=== PATIENT | male | born 1955 | race Caucasian/White ===

== ENCOUNTER 2024-02-04 18:42 | Outpatient (REF) | payer MEDICARE, SELFPAY ==
[2024-02-04 19:22] LABS: ALT 37 U/L (16-63); AST 24 U/L (15-37); Albumin 4.2 g/dL (3.4-5.0); Alkaline Phosphatase 100 U/L (46-116); Anion Gap 14.1 mmol/L (3-11); BUN 18 mg/dL (7-18); Bilirubin, Total 0.3 mg/dL (0.2-1.0); CO2 23.9 mmol/L (21.0-32.0); CREATININE 0.8 mg/dL (0.70-1.30); Calcium 9.4 mg/dL (8.5-10.1); Chloride 104 mmol/L (98-107); Glucose 98 mg/dL (74-106); Potassium 4.1 mmol/L (3.5-5.1); Sodium 142 mmol/L (136-145); Total Protein 8.6 g/dL (6.4-8.2)
[2024-02-04 20:05] LABS: Hemoglobin A1C 5.9 % (<5.7)
[2024-02-04 20:41] LABS: Cholesterol 257 mg/dL (<200); HDL Cholesterol 49 mg/dL (40-60); Triglyceride 405 mg/dL (<150)
[2024-02-04 22:46] LABS: LDL CHOLESTEROL 153 mg/dL (<100)
[2024-02-05 18:13] LABS: PSA, Screening 1.4 ng/mL (<=4.5)
== END 2024-02-04 18:43 | disposition home or self-care (01) ==
LOC: NCHCN 18:42
PROVIDERS: PCP Family Medicine; Visit Provider Nurse Practitioner Family
DX: E78.5 Hyperlipidemia, unspecified (principal); Z00.00 Encounter for general adult medical examination without abnormal findings
CPT/HCPCS: 80053; 80061; 82306; 83721; 84153; 83036

== ENCOUNTER → 2024-03-17 14:45 | Outpatient (CLI) | payer MEDICARE, SELFPAY ==
--- NOTE | 2024-03-17 10:13 | DI.RAD_ITS ---
Exam(s) XR CHEST 2V PA LATERAL EXAM: XR CHEST 2V PA LATERAL CLINICAL HISTORY: PERSISTENT COUGH, R05.3. TECHNIQUE: 2D digital imaging was performed. COMPARISON: No exams were available for comparison FINDINGS: 2 views: Heart size is normal. The mediastinum is not widened. Lungs are clear. No infiltrates nor pleural effusions. IMPRESSION: No acute pulmonary findings. DATA REPOSITORY: RADIATION DOSE DELIVERED:
== END ==
PROVIDERS: PCP Family Medicine; Visit Provider Physician Assistant Medical
DX: R05.3 Chronic cough (principal)
CPT/HCPCS: 71046

== ENCOUNTER 2024-03-17 16:32 | Outpatient (REF) | payer MEDICARE, SELFPAY ==
--- OUTSIDE RECORDS SUMMARY | 2024-03-30 16:34 | XMS_ITS | Continuity of Care Document ---
Author Name Unknown Organization [facility] Ambulatory Clinics Address [address] [place] [address] Care Team Providers Care Hide Trimmer Name Role Phone MONTRELL CORDOBA Primary Care Physic suellen Encounter [facility] FIN NBR [id number] Date(s): 02/05/24 - 02/05/24 [facility] Ambulatory Clin[facility] [address] [place], [place] [address] Allergies, Adverse Reactions, Alerts Substance Reaction Severity Status Bee Stings Severe Active sulfa drugs Mild Active Medications multivitamin adult, oral tablet 1 tab, Oral, Daily, # 30 tab, 0 Refill(s) Start Date: 03/16/23 Status: Ordered PriLOSEC OTC 20 mg oral delayed release tablet 20 mg = 1 tab, Oral, Daily, # 30 tab, 0 Refill(s) Start Date: 03/16/23 Status: Ordered Social History Social History Type Response Tobacco Never tobacco user T obacco Use:. Sex Patient Care team information Care Team Personnel Name: MONTRELL CORDOBA Position: No Access Member Role: Primary Care Physician Address: Address: [facility] [address] [place] [address]- [place] Care Team Related Persons Name: JOAQUIN WILKS
--- OUTSIDE RECORDS SUMMARY | 2024-03-30 16:34 | XMS_ITS | Continuity of Care Document ---
Author Name Unknown Organization [facility] Address [address] [place] [address] Encounter [facility] FIN NBR [id number] Date(s): 03/17/23 - 03/17/23 [facility] [address] [place], [place] [address] Encounter Diagnosis Abscess(Discharge Diagnosis) - 03/17/23 Discharge Disposition: Home or Self Care Attending Physician: Bassam Rodriguez MD Admitting Physician: Bassam Rodriguez MD Allergies, Adverse Reactions, Alerts Substance Reaction Severity Status Bee Stings Severe Active sulfa drugs Mild Active Functional Status 03/17/23 Family Member Travel History No recent t ravel Recent Travel History No recent travel Other exposure to Infectious Disease Non e Medications multivitamin adult, oral tablet 1 tab, Oral, Daily, # 30 tab, 0 Refill(s) Start Date: 03/16/23 Status: Ordered PriLOSEC OTC 20 mg oral delayed release tablet 20 mg = 1 tab, Oral, Daily, # 30 tab, 0 Refill(s) Start Date: 03/16/23 Status: Ordered Mental Status 03/17/23 Eye Opening Response Jefferson Spontaneous ly Best Verbal Response Elli Oriented Best Motor Response Jefferson Obeys comman ds Jefferson Coma Score 15 Vital Signs Most recent to oldest [Reference Range]: 1 Temperature Temporal Artery [36-38 Deg C ] 36.4 Deg C (03/17/23 4:00 PM) Peripheral Pulse Rate [60-100 bpm] 74 bp m (03/17/23 4:00 PM) Respiratory Rate [12-24 br/min] 18 br/mi n (03/17/23 4:00 PM) Blood Pressure [90-140/60-90 mmHg] 137/9 8mmHg (03/17/23 4:00 PM) Weight Dosing 98.00 kg (03/17/23 4:13 PM) Weight Estimated 98.00 kg (03/17/23 4:00 PM) Height/Length Dosing 175.000 cm (03/17/23 4:13 PM) Height/Length Estimated 175.000 cm (03/17/23 4:00 PM) Social History Social History Type Response Tobacco Never tobacco user T obacco Use:. Sex Hospital Discharge Instructions Patient Education 03/17/2023 15:31:16 Skin Abscess Skin Abscess A skin abscess is an infected area on or under your skin that contains a collection of pus and other material. An abscess may also be called a furuncle, carbuncle, or boil. An abscess can occur in oron almost any part of your body. Some abscesses break open (rupture) on their own. Most continue to get worse unless they are treated. The infection can spread deeper into the body and eventually into your blood, which can make you feel ill. Treatment usually involves draining the abscess. What are the causes? An abscess occurs when germs, like bacteria, pass through your skin and cause an infection. This may be caused by: ??? A scrape or cut on your skin. ??? A puncture wound through your skin, including a needle injection or insect bite. ??? Blocked oil or sweat glands. ??? Blocked and infected hair follicles. ??? A cyst that forms beneath your skin (sebaceous cyst) and becomes infected. What increases the risk? This condition is more likely to develop in people who: ??? Have a weak body defense system (immune system). ??? Have diabetes. ??? Have dry and irritated skin. ??? Get frequent injections or use illegal IV drugs. ??? Have a foreign body in a wound, such as a splinter. ??? Have problems with their lymph system or veins. What are the signs or symptoms? Symptoms of this condition include: ??? A painful, firm bump under the skin. ??? A bump with pus at the top. This may break through the skin and drain. Other symptoms include: ??? Redness surrounding the abscess site. ??? Warmth. ??? Swelling of the lymph nodes (glands) near the abscess. ??? Tenderness. ??? A sore on the skin. How is this diagnosed? This condition may be diagnosed based on: ??? A physical exam. ??? Your medical history. ??? A sample of pus. This may be used to find out what is causing the infection. ??? Blood tests. ??? Imaging tests, such as an ultrasound, CT scan, or MRI. How is this treated? A small abscess that drains on its own may not need treatment. Treatment for larger abscesses may include: ??? Moist heat or heat pack applied to the area several times a day. ??? A procedure to drain the abscess (incision and drainage). ??? Antibiotic medicines. For a severe abscess, you may first get antibiotics through an IV and then change to antibiotics by mouth. Follow these instructions at home: Medicines ??? Take [id number]-[id number] and prescription medicines only as told by your health care provider. ??? If you were prescribed an antibiotic medicine, take it as told by your health care provider. Donot stop taking the antibiotic even if you start to feel better. Abscess care ??? If you have an abscess that has not drained, apply heat to the affected area. Use the heat source that your health care provider recommends, such as a moist heat pack or a heating pad. ??? Place a towel between your skin and the heat source. ??? Leave the heat on for 20???30 minutes. ??? Remove the heat if your skin turns bright red. This is especially important if you are unable to feel pain, heat, or cold. You may have a greater risk of getting burned. ??? Follow instructions from your health care provider about how to take care of your abscess. Makesure you: ??? Cover the abscess with a bandage (dressing). ??? Change your dressing or gauze as told by your health care provider. ??? Wash your hands with soap and water before you change the dressing or gauze. If soap and water are not available, use hand beauty consultant. ??? Check your abscess every day for signs of a worsening infection. Check for: ??? More redness, swelling, or pain. ??? More fluid or blood. ??? Warmth. ??? More pus or a bad smell. General instructions ??? To avoid spreading the infection: ??? Do not share personal care items, towels, or hot tubs with others. ??? Avoid making skin contact with other people. ??? Keep all follow-up visits as told by your health care provider. This is important. Contact a health care provider if you have: ??? More redness, swelling, or pain around your abscess. ??? More fluid or blood coming from your abscess. ??? Warm skin around your abscess. ??? More pus or a bad smell coming from your abscess. ??? A fever. ??? Muscle aches. ??? Chills or a general ill feeling. Get help right away if you: ??? Have severe pain. ??? See red streaks on your skin spreading away from the abscess. Summary ??? A skin abscess is an infected area on or under your skin that contains a collection of pus and other material. ??? A small abscess that drains on its own may not need treatment. ??? Treatment for larger abscesses may include having a procedure to drain the abscess and taking an antibiotic. This information is not intended to replace advice given to you by your health care provider. Make sure you discuss any questions you have with your health care provider. Document Revised: 01/19/2020 Document Reviewed: 11/11/2018 [employer] Patient Education ?? 2021 [employer]. Follow Up Care 03/17/2023 16:00:05 With:Follow-up with your primary care Address: When:1 week Comments:Follow-up with your primary care as needed, they will be able to reevaluate if necessaryReturn to ED if concerns Physician Emergency department Note * CLEOPATRA Lin: PERFORM Event Display: ED Note Physician Authored Date: [id number] TEREZA WILKS :1955 Age:67 years Sex:Male Visit Date:03/17/2023 Basic Information Time Seen: CLEOPATRA Lin / 03/17/2023 16:04 Chief Complaint Pt presents to ED requesintg packing removal from mid back, Placed at [facility] ED Thursday morning for abscess. Deneis pain or worsening s/s History Of Present Illness: Patient is a 67-year-old male presents emergency department for a recheck of an abscess that was I&D??on his posterior torso??2 and half days ago. ??He notes that since then he has had drainage??but no need to change??dressing??packing remains in place he has had some mild itching around the area but no significant discomfort. 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 Review of Systems: See HPI Physical Exam Vitals & Measurements T:??36.4?C ??(Temporal Artery)?? HR:??74??(Peripheral)?? RR:??18?? BP:??137/98?? SpO2:??99%?? HT:??175.000??cm?? WT:??98.00??kg??(Estimated)?? O2 Therapy:??Room air?? Patient is alert oriented age-appropriate nontoxic Neck is supple nontender Regular rate and effort Skin is warm and dry other than a??abscess in the back??that does have intact packing??packing is removed a moderate amount of pus is expressed, patient tolerated this well No signs of erythema or??edema about the area there is a small area of induration about the incision??which remains open. Procedure No Qualifying Data Assessment/Plan 1.??Abscess??L02.91 I had a lengthy discussion with the patient that I still do not believe antibiotics are necessary and he would like to hold off if necessary.?? He will follow-up??with his primary care??and will return if necessary for reevaluation. ??He agrees and understands all aspects of today's discharge plan Orders: Discharge Patient, 03/17/23 16:30:00 EDT Patient Education Skin Abscess Follow Up With When Contact Information Follow-up with your primary care Within 1 week Additional Instructions: Follow-up with your primary care as needed, they will be able to reevaluate if necessary Return to ED if concerns Medication Reconciliation Unchanged multivitamin (multivitamin adult, oral tablet)1 tab Oral (given by mouth) every day. ?? omeprazole (PriLOSEC OTC 20 mg oral delayed release tablet)1 tab Oral (given by mouth) every day. Problem List/Past Medical History Ongoing No qualifying data Historical No qualifying data Allergies Bee Stings sulfa drugs Social History Electronic Cigarette/Vaping Electronic Cigarette Use: Never. Tobacco Never tobacco user Tobacco Use:. Electronically Signed on 03/17/23 08:40 PM CLEOPATRA Lin Emergency department Discharge instructions * CLEOPATRA Lin: PERFORM Event Display: ED Discharge Information Authored Date: [id number] TEREZA WILKS :1955 Age:67 years Sex:Male Visit Date:03/17/2023 Discharge Instructions We would like to thank you for allowing us to assist you with your healthcare needs. The following includes patient education materials and information regarding your injury/illness. Diagnosis from Today's Visit Abscess Discharge Vitals Temperature??(Temporal Artery) 97.5 ??F (36.4 ??C) Heart Rate??(Peripheral) 74 Respiratory Rate?? 18 Blood Pressure?? 137/98?? Height?? 68.90 in (175.000 cm) Weight??(Estimated) 216.09 lb (98.00 kg) Allergies Bee Stings sulfa drugs What to Do Next Instructions from Your Care Team Warm compresses,??to 3 times daily Tylenol or ibuprofen as needed Return to emergency department for any increased redness, fever chills nausea vomiting You Need to Schedule the Following Appointments Follow Up with??Follow-up with your primary care When:??Within 1 week Why: Follow-up with your primary care as needed, they will be able to reevaluate if necessary Return to ED if concerns You were treated today on an emergency basis; it may be campos to contact your primary care provider to notify them of your visit today. You may have been referred to your regular doctor or a specialist, please follow up as instructed. If your condition worsens or you can't get in to see the doctor, contact the Emergency Department. Medications What How Much When Instructions Next Dose Unchanged multivitamin (multivitamin adult, oral tablet) 1 tab Oral (given by mouth) Every day Unchanged omeprazole (PriLOSEC OTC 20 mg oral delayed release tablet) 1 tab Oral (given by mouth) Every day Education Materials Skin Abscess A skin abscess is an infected area on or under your skin that contains a collection of pus and other material. An abscess may also be called a furuncle, carbuncle, or boil. An abscess can occur in oron almost any part of your body. Some abscesses break open (rupture) on their own. Most continue to get worse unless they are treated. The infection can spread deeper into the body and eventually into your blood, which can make you feel ill. Treatment usually involves draining the abscess. What are the causes? An abscess occurs when germs, like bacteria, pass through your skin and cause an infection. This may be caused by: ? A scrape or cut on your skin. ? A puncture wound through your skin, including a needle injection or insect bite. ? Blocked oil or sweat glands. ? Blocked and infected hair follicles. ? A cyst that forms beneath your skin (sebaceous cyst) and becomes infected. What increases the risk? This condition is more likely to develop in people who: ? Have a weak body defense system (immune system). ? Have diabetes. ? Have dry and irritated skin. ? Get frequent injections or use illegal IV drugs. ? Have a foreign body in a wound, such as a splinter. ? Have problems with their lymph system or veins. What are the signs or symptoms? Symptoms of this condition include: ? A painful, firm bump under the skin. ? A bump with pus at the top. This may break through the skin and drain. Other symptoms include: ? Redness surrounding the abscess site. ? Warmth. ? Swelling of the lymph nodes (glands) near the abscess. ? Tenderness. ? A sore on the skin. How is this diagnosed? This condition may be diagnosed based on: ? A physical exam. ? Your medical history. ? A sample of pus. This may be used to find out what is causing the infection. ? Blood tests. ? Imaging tests, such as an ultrasound, CT scan, or MRI. How is this treated? A small abscess that drains on its own may not need treatment. Treatment for larger abscesses may include: ? Moist heat or heat pack applied to the area several times a day. ? A procedure to drain the abscess (incision and drainage). ? Antibiotic medicines. For a severe abscess, you may first get antibiotics through an IV and then change to antibiotics by mouth. Follow these instructions at home: Medicines ? Take okgt-dqo-dflzmtk and prescription medicines only as told by your health care provider. ? If you were prescribed an antibiotic medicine, take it as told by your health care provider. Do notstop taking the antibiotic even if you start to feel better. Abscess care ? If you have an abscess that has not drained, apply heat to the affected area. Use the heat source that your health care provider recommends, such as a moist heat pack or a heating pad. ? Place a towel between your skin and the heat source. ? Leave the heat on for 20???30 minutes. ? Remove the heat if your skin turns bright red. This is especially important if you are unable to feel pain, heat, or cold. You may have a greater risk of getting burned. ? Follow instructions from your health care provider about how to take care of your abscess. Make sure you: ? Cover the abscess with a bandage (dressing). ? Change your dressing or gauze as told by your health care provider. ? Wash your hands with soap and water before you change the dressing or gauze. If soap and water are not available, use hand beauty consultant. ? Check your abscess every day for signs of a worsening infection. Check for: ? More redness, swelling, or pain. ? More fluid or blood. ? Warmth. ? More pus or a bad smell. General instructions ? To avoid spreading the infection: ? Do not share personal care items, towels, or hot tubs with others. ? Avoid making skin contact with other people. ? Keep all follow-up visits as told by your health care provider. This is important. Contact a health care provider if you have: ? More redness, swelling, or pain around your abscess. ? More fluid or blood coming from your abscess. ? Warm skin around your abscess. ? More pus or a bad smell coming from your abscess. ? A fever. ? Muscle aches. ? Chills or a general ill feeling. Get help right away if you: ? Have severe pain. ? See red streaks on your skin spreading away from the abscess. Summary ? A skin abscess is an infected area on or under your skin that contains a collection of pus and other material. ? A small abscess that drains on its own may not need treatment. ? Treatment for larger abscesses may include having a procedure to drain the abscess and taking an antibiotic. This information is not intended to replace advice given to you by your health care provider. Make sure you discuss any questions you have with your health care provider. Document Revised: 01/19/2020 Document Reviewed: 11/11/2018 [employer] Patient Education ?? 2021 [employer] Patient/Cartridge Maker Signature Patient Name:TEREZA WILKS I have received this information and my questions have been answered. Patient/Cartridge Maker Name: Patient/Cartridge Maker Signature: Relationship to Patient: Witness Name/Signature: Date: Electronically Signed on: 03/17/2023 16:32 EDTSigned by: Patient Care team information Care Team Personnel Name: CLEOPATRA Lin Position: Physician Member Role: Physician Stoneworker Address: Address: [address] [place] [id number] Name: Mercedes Muhammad Position: Nurse Member Role: ED Nurse Care Team Related Persons Name: JOAQUIN WILKS
--- OUTSIDE RECORDS SUMMARY | 2024-03-30 16:34 | XMS_ITS | Continuity of Care Document ---
Author Name Unknown Organization [facility] Address [address] [place] [address] Encounter [facility] FIN NBR [id number] Date(s): 03/16/23 - 03/16/23 [facility] [address], [place] [address] En[facility] Diagnosis Abscess of back(Discharge Diagnosis) - 03/16/23 Discharge Disposition: Home f/u Internal Provider Attending Physician: Isac Kurtz MD Admitting Physician: Isac Kurtz MD Allergies, Adverse Reactions, Alerts Substance Reaction Severity Status Bee Stings Severe Active sulfa drugs Mild Active Functional Status 03/16/23 Other exposure to Infectious Disease Non e Medications multivitamin adult, oral tablet 1 tab, Oral, Daily, # 30 tab, 0 Refill(s) Start Date: 03/16/23 Status: Ordered PriLOSEC OTC 20 mg oral delayed release tablet 20 mg = 1 tab, Oral, Daily, # 30 tab, 0 Refill(s) Start Date: 03/16/23 Status: Ordered Vital Signs Most recent to oldest [Reference Range]: 1 Temperature Temporal Artery [36-38 Deg C ] 36.6 Deg C (03/16/23 1:01 AM) Peripheral Pulse Rate [60-100 bpm] 73 bp m (03/16/23 1:01 AM) Respiratory Rate [12-24 br/min] 18 br/mi n (03/16/23 1:01 AM) Blood Pressure [90-140/60-90 mmHg] 156/1 00mmHg *HI* (03/16/23 1:01 AM) Weight 99.00 kg (03/16/23 1:01 AM) Weight Dosing 99.00 kg (03/16/23 1:09 AM) Height 175.000 cm (03/16/23 1:01 AM) Height/Length Dosing 175.000 cm (03/16/23 1:09 AM) Body Mass Index 32.000 kg/m2 (03/16/23 1:01 AM) Social History Social History Type Response Tobacco Never tobacco user T obacco Use:. Sex Hospital Discharge Instructions Patient Education 03/16/2023 00:34:19 Incision and Drainage, Care After Incision and Drainage, Care After This sheet gives you information about how to care for yourself after your procedure. Your health care provider may also give you more specific instructions. If you have problems or questions, contact your health care provider. What can I expect after the procedure? After the procedure, it is common to have: ??? Pain or discomfort around the incision site. ??? Blood, fluid, or pus (drainage) from the incision. ??? Redness and firm skin around the incision site. Follow these instructions at home: Medicines ??? Take jtcm-afg-pvohrsr and prescription medicines only as told by your health care provider. ??? If you were prescribed an antibiotic medicine, use or take it as told by your health care provider. Do not stop using the antibiotic even if you start to feel better. Wound care Follow instructions from your health care provider about how to take care of your wound. Make sure you: ??? Wash your hands with soap and water before and after you change your bandage (dressing). If soap and water are not available, use hand knife cutter. ??? Change your dressing and packing as told by your health care provider. ??? If your dressing is dry or stuck when you try to remove it, moisten or wet the dressing with saline or water so that it can be removed without harming your skin or tissues. ??? If your wound is packed, leave it in place until your health care provider tells you to remove it. To remove the packing, moisten or wet the packing with saline or water so that it can be removedwithout harming your skin or tissues. ??? Leave stitches (sutures), skin glue, or adhesive strips in place. These skin closures may need to stay in place for 2 weeks or longer. If adhesive strip edges start to loosen and curl up, you maytrim the loose edges. Do not remove adhesive strips completely unless your health care provider tells you to do that. Check your wound every day for signs of infection. Check for: ??? More redness, swelling, or pain. ??? More fluid or blood. ??? Warmth. ??? Pus or a bad smell. If you were sent home with a drain tube in place, follow instructions from your health care provider about: ??? How to empty it. ??? How to care for it at home. General instructions ??? Rest the affected area. ??? Do not take baths, swim, or use a hot tub until your health care provider approves. Ask your health care provider if you may take showers. You may only be allowed to take sponge baths. ??? Return to your normal activities as told by your health care provider. Ask your health care provider what activities are safe for you. Your health care provider may put you on activity or liftingrestrictions. ??? The incision will continue to drain. It is normal to have some clear or slightly bloody drainage. The amount of drainage should lessen each day. ??? Do not apply any creams, ointments, or liquids unless you have been told to by your health careprovider. ??? Keep all follow-up visits as told by your health care provider. This is important. Contact a health care provider if: ??? Your cyst or abscess returns. ??? You have a fever or chills. ??? You have more redness, swelling, or pain around your incision. ??? You have more fluid or blood coming from your incision. ??? Your incision feels warm to the touch. ??? You have pus or a bad smell coming from your incision. ??? You have red streaks above or below the incision site. Get help right away if: ??? You have severe pain or bleeding. ??? You cannot eat or drink without vomiting. ??? You have decreased urine output. ??? You become short of breath. ??? You have chest pain. ??? You cough up blood. ??? The affected area becomes numb or starts to tingle. These symptoms may represent a serious problem that is an emergency. Do not wait to see if the symptoms will go away. Get medical help right away. Call your local emergency services (911 in the [place] Do not drive yourself to the hospital. Summary ??? After this procedure, it is common to have fluid, blood, or pus coming from the surgery site. ??? Follow all home care instructions. You will be told how to take care of your incision, how to check for infection, and how to take medicines. ??? If you were prescribed an antibiotic medicine, take it as told by your health care provider. Donot stop taking the antibiotic even if you start to feel better. ??? Contact a health care provider if you have increased redness, swelling, or pain around your incision. Get help right away if you have chest pain, you vomit, you cough up blood, or you have shortness of breath. ??? Keep all follow-up visits as told by your health care provider. This is important. This information is not intended to replace advice given to you by your health care provider. Make sure you discuss any questions you have with your health care provider. Document Revised: 08/29/2019 Document Reviewed: 08/29/2019 [employer] Patient Education ?? 2021 [employer]. Emergency department Discharge instructions * Jerardo SIGALA, Isac Pacheco: PERFORM Event Display: ED Discharge Information Authored Date: [id number] TEREZA WILKS :1955 Age:67 years Sex:Male Visit Date:03/16/2023 Discharge Instructions We would like to thank you for allowing us to assist you with your healthcare needs. The following includes patient education materials and information regarding your injury/illness. Diagnosis from Today's Visit Abscess of back Discharge Vitals Temperature??(Temporal Artery) 97.9 ??F (36.6 ??C) Heart Rate??(Peripheral) 73 Respiratory Rate?? 18 Blood Pressure?? 156/100?? Height?? 68.90 in (175.000 cm) Weight?? 218.30 lb (99.00 kg) BMI?? 32.000 Allergies Bee Stings sulfa drugs What to Do Next Instructions from Your Care Team Keep??dressing clean??and dry. ??Hgpk-yns-ooodglu medicine as needed for??discomfort. ??Return in roughly 2 days for??packing removal and recheck. ??Return sooner for any problems You were treated today on an emergency [...] (given by mouth) Every day Education Materials Incision and Drainage, Care After This sheet gives you information about how to care for yourself after your procedure. Your health care provider may also give you more specific instructions. If you have problems or questions, contact your health care provider. What can I expect after the procedure? After the procedure, it is common to have: ? Pain or discomfort around the incision site. ? Blood, fluid, or pus (drainage) from the incision. ? Redness and firm skin around the incision site. Follow these instructions at home: Medicines ? Take hckh-hrz-psammcx and prescription medicines only as told by your health care provider. ? If you were prescribed an antibiotic medicine, use or take it as told by your health care provider.Do not stop using the antibiotic even if you start to feel better. Wound care Follow instructions from your health care provider about how to take care of your wound. Make sure you: ? Wash your hands with soap and water before and after you change your bandage (dressing). If soap and water are not available, use hand knife cutter. ? Change your dressing and packing as told by your health care provider. ? If your dressing is dry or stuck when you try to remove it, moisten or wet the dressing with salineor water so that it can be removed without harming your skin or tissues. ? If your wound is packed, leave it in place until your health care provider tells you to remove it. To remove the packing, moisten or wet the packing with saline or water so that it can be removed without harming your skin or tissues. ? Leave stitches (sutures), skin glue, or adhesive strips in place. These skin closures may need to stay in place for 2 weeks or longer. If adhesive strip edges start to loosen and curl up, you may trim the loose edges. Do not remove adhesive strips completely unless your health care provider tells you to do that. Check your wound every day for signs of infection. Check for: ? More redness, swelling, or pain. ? More fluid or blood. ? Warmth. ? Pus or a bad smell. If you were sent home with a drain tube in place, follow instructions from your health care provider about: ? How to empty it. ? How to care for it at home. General instructions ? Rest the affected area. ? Do not take baths, swim, or use a hot tub until your health care provider approves. Ask your healthcare provider if you may take showers. You may only be allowed to take sponge baths. ? Return to your normal activities as told by your health care provider. Ask your health care provider what activities are safe for you. Your health care provider may put you on activity or lifting restrictions. ? The incision will continue to drain. It is normal to have some clear or slightly bloody drainage. The amount of drainage should lessen each day. ? Do not apply any creams, ointments, or liquids unless you have been told to by your health care provider. ? Keep all follow-up visits as told by your health care provider. This is important. Contact a health care provider if: ? Your cyst or abscess returns. ? You have a fever or chills. ? You have more redness, swelling, or pain around your incision. ? You have more fluid or blood coming from your incision. ? Your incision feels warm to the touch. ? You have pus or a bad smell coming from your incision. ? You have red streaks above or below the incision site. Get help right away if: ? You have severe pain or bleeding. ? You cannot eat or drink without vomiting. ? You have decreased urine output. ? You become short of breath. ? You have chest pain. ? You cough up blood. ? The affected area becomes numb or starts to tingle. These symptoms may represent a serious problem that is an emergency. Do not wait to see if the symptoms will go away. Get medical help right away. Call your local emergency services (911 in the [place] Do not drive yourself to the hospital. Summary ? After this procedure, it is common to have fluid, blood, or pus coming from the surgery site. ? Follow all home care instructions. You will be told how to take care of your incision, how to checkfor infection, and how to take medicines. ? If you were prescribed an antibiotic medicine, take it as told by your health care provider. Do notstop taking the antibiotic even if you start to feel better. ? Contact a health care provider if you have increased redness, swelling, or pain around your incision. Get help right away if you have chest pain, you vomit, you cough up blood, or you have shortness of breath. ? Keep all follow-up visits as told by your health care provider. This is important. This information is not intended to replace advice given to you by your health care provider. Make sure you discuss any questions you have with your health care provider. Document Revised: 08/29/2019 Document Reviewed: 08/29/2019 [employer] Patient Education ?? 2021 [employer] Patient[employer] Signature Patient Name:TEREZA WILKS I have received this information and my questions have been answered. Patient/[employer] Name: Patient/[employer] Signature: Relationship to Patient: Witness Name/Signature: Date: Electronically Signed on: 03/16/2023 01:34 EDTSigned by:NINA Patient Care team information Care Team Personnel Name: Isac Kurtz MD Position: Physician Member Role: ED Physician Address: Address: [address] [place] [id number] Name: Genesis Padilla Position: Nurse Member Role: ED Nurse Care Team Related Persons Name: JOAQUIN WILKS
== END 2024-03-17 16:33 | disposition home or self-care (01) ==
LOC: LBN 16:32
PROVIDERS: PCP Family Medicine; Visit Provider Physician Assistant Medical
DX: J02.9 Acute pharyngitis, unspecified (principal)
CPT/HCPCS: 87070

== ENCOUNTER 2024-07-21 18:16 | Outpatient (REF) | payer MEDICARE, SELFPAY ==
--- OUTSIDE RECORDS SUMMARY | 2024-07-21 18:19 | XMS_ITS | Encounter Summary ---
Author Organization [facility] Address [address] [place] [address] Care Team Providers Care Debt Management Counselor Name Role Phone Unknown, Provider Primary Care Provider Encounter Details Date Type Department Care Team (Late st Contact Info) Description 04/28/2024 Lab Requisition [facility] Pathology & Laboratory Medicine - [address] [address] Andrew Oliveira MD [address] [place] [phone] Personal history of colonic polyps; Encounter for screening for malignant neoplasm of colon; Gastro-esophageal reflux disease without esophagitis Social History Tobacco Use Types Packs/Day Years Used Date Smoking Tobacco: Never Assessed Sex and Gender Information Value Date Recorded Sex Assigned at Not on file Gender Identity Not on file Sexual Orientation Not on file documented as of this encounter Plan of Treatment Not on file documented as of this encounter Procedures Procedure Name Priority Date/Time Associated Diagnosis Comments SURGICAL PATHOLOGY Today 04/27/2024 9: 13 EDT Personal history of colonic polyps Encounter for screening for malignant neoplasm of colon Gastro-esophageal reflux disease without esophagitis documented in this encounter Results * SURGICAL PATHOLOGY (04/27/2024 9:13 EDT) Note to Patient The following pathology results have been interpreted by your pathologist and may be available to you before your health provider has had the opportunity to review them. Please allow time for your provider to receive these results and explore management options, if applicable. 05/02/2024 15:10 [facility] Final Diagnosis A. CECUM, POLYP, BIOPSY: - Colonic mucosa with lymphoid aggregate. - Negative for dysplasia. B. MID TRANSVERSE COLON, POLYP, BIOPSY: - Tubular adenoma. C. COLON, SPLENIC FLEXURE, POLYP, BIOPSY: - Tubular adenoma fragments. 05/02/2024 15:10 [facility] Diagnosis Comment The technical component of the specimen processing was performed at the [facility] Pathology Department, [address] [place] [address] (CLIA [id number]). The professional component of the specimen evaluation (slide review and issuing of the final diagnosis) was performed at [facility], [address] [place] [address] (CLIA License Number [id number]). 05/02/2024 15:10 [facility] Attestation By the signature below, the attending physician certifies that they have 1) personally conducted a gross and/or microscopic examination of the described specimen(s), and/or personally interpreted the results of laboratory testing of the described specimen(s), and 2) personally rendered or confirmed the above diagnosis. 05/02/2024 15:10 [facility] at 1510 Clinical History Screening colonoscopy, diverticulosis; clinical diagnosis code: K21.9, Z12.11, Z86.010 05/02/2024 15:10 [facility] Gross Description A. Received in formalin labelled with proper patient identification (initials W, R) and cecum polyp is a vila tissue fragment, 0.3 x 0.2 x 0.1 cm. Entirely submitted in A1. B. Received in formalin labelled with proper patient identification (initials W, R) and mid transverse colon polyp is a vila tissue fragment, 0.7 x 0.5 x 0.2 cm. Entirely submitted in B1. C. Received in formalin labelled with proper patient identification (initials W, R) and splenic flexure polyp are two vila tissue fragments, 0.3 x 0.2 x 0.1 cm and 0.4 x 0.2 x 0.1 cm. Entirely submitted in C1. CLEOPATRA LYONS(ASCP) 04/29/2024 10:29 05/02/2024 15:10 EDT [facility] Performing Lab [facility] 05/02/2024 15:10 EDT [facility] Scanned Images 05/02/2024 15:10 EDT [facility] Tissue POLYP OF SPLENIC FLEXURE OF COLON / Unknown 04/27/2024 9:13 EDT 04/28/2024 20:54 EDT Tissue specimen (specimen) TRANSVERSE COLON STRUCTURE / Unknown 04/27/2024 9:13 EDT 04/28/2024 20:54 EDT Tissue specimen (specimen) POLYP OF SPLENIC FLEXURE OF COLON / Unknown 04/27/2024 9:13 EDT 04/28/2024 20:54 EDT Andrew Oliveira MD PATHOLOGY ORD ERABLES [facility] [address] [place] [address] documented in this encounter Visit Diagnoses Diagnosis Personal history of colonic polyps Encounter for screening for malignant neoplasm of colon Special screening for malignant neoplasms, colon Gastro-esophageal reflux disease without esophagitis Esophageal reflux documented in this encounter Care Teams Debt Management Counselor Relationship Specialty Start Date End Date Unknown, Provider, PCP - General 02/17/11 documented as of this encounter
--- OUTSIDE RECORDS SUMMARY | 2024-07-21 18:19 | XMS_ITS | Continuity of Care Document ---
Author Organization [facility] Address [address] [place] [id number] Care Team Providers Care Business Center Manager Name Role Phone CHANDANFRANNIEYOU NET SOFTWARE ENGINEER-BC, MONTRELL Primary Care Physic suellen Encounter [facility] NBR [id number] Date(s): 04/27/24 - 04/27/[address] [id number]- Encounter Diagnosis Encounter for colonoscopy due to history of adenomatous colonic polyps(Discharge Diagnosis) - 04/27/24 Personal history of colonic polyps(Discharge Diagnosis) - 04/27/24 Discharge Disposition: Home or Self Care Attending Physician: Andrew Oliveira MD Admitting Physician: Andrew Oliveira MD Referring Physician: Andrew Oliveira MD Allergies, Adverse Reactions, Alerts Substance Reaction Severity Status Bee Stings Severe Active sulfa drugs Mild Active Assessment and Plan Extracted from: Title:H & P Author:Andrew Oliveira MD Colin e:04/27/24 1.??Encounter for colonoscop y due to history of adenomatous colonic polyps??Z12.11 ??Colonoscopy today. Orders: sodium chloride 0.9% flush, 10 mL, IV Flush, Injection, every 8 hr, First Dose: 04/27/24 7:00:00 EDT, Routine sodium chloride 0.9% flush, 10 mL, IV Flush, Injection, As Directed, First Dose: 04/27/24 6:35:00 EDT, Physician Stop, Routine Sodium Chloride 0.9% 1,000 mL, Total Volume (mL): 1,000, 1,000 mL, Soln-IV, IV, 50 mL/hr, Start Date: 04/27/24 6:35:00 EDT, 95.25 kg, Populate Charting Weight From Order, 2.15, m2 Blood Glucose Monitoring POC RE, 04/27/24 6:35:00 EDT, Stop date 04/27/24 6:35:00 EDT Diet Order, 04/27/24 6:35:00 EDT, Regular Discharge Patient, 04/27/24 6:35:00 EDT, Discharge when stable per SDS criteria Discharge Patient, 04/27/24 6:35:00 EDT, Discharge when stable per anesthesia criteria Discharge Patient Instructions, Avoid alcohol, tranquilizers, sleeping pills, or cold medicines for 24 hours Discharge Patient Instructions, Do not sign any contracts, make any major decisions, or drive or operate machinery for 24 hours Discharge Patient Instructions, You should not be responsible for the care of others Discharge Patient Instructions, You may resume your normal activity in 24 hours Discharge Patient Instructions, It is important that a responsible adult drive you home today Discharge Patient Instructions, Call with any additional questions or concerns Discharge Patient Instructions, Passing gas rectally and belching is normal Discharge Patient Instructions, Call or come to emergency department for fever greater than 100 ??F Discharge Patient Instructions, A light first meal may feel better in your stomach Discharge Patient Instructions, You may experience some gas cramps and abdominal bloating Discharge Patient Instructions, Call or come to emergency department for dizziness Discharge Patient Instructions, Cramping and abdominal bloating should subside in 1 hour or so Discharge Patient Instructions, Call or come to emergency department chest pain, or shortness of breath Discharge Patient Instructions, Call or come to emergency department if having unusual pain or severe abdominal pain Discharge Patient Instructions, Call or come to emergency department if vomiting blood or having black bowel movements, rectal bleeding or passing blood clots Obtain consent, 04/27/24 6:35:00 EDT, Constant Order, 04/27/24 6:35:00 EDT Peripheral IV Insertion, 04/27/24 6:35:00 EDT Saline Lock Convert From IV, 04/27/24 6:35:00 EDT, Stop date 04/27/24 6:35:00 EDT Vital Signs, 04/27/24 6:35:00 EDT, Stop date 04/27/24 6:35:00 EDT, As needed Vital Signs, 04/27/24 6:35:00 EDT, Stop date 04/27/24 6:35:00 EDT, Routine Vital Signs, 04/27/24 6:35:00 EDT, Once, Stop date 04/27/24 6:35:00 EDT Functional Status 04/27/24 Special Services and Community Resources None 04/27/24 ADLs Independent 04/21/24 Living Situation Home with family car e Recent Travel History No recent travel Medications multivitamin adult, oral tablet 1 tab, Oral, Daily, # 30 tab, 0 Refill(s) Start Date: 03/16/23 Status: Ordered PriLOSEC OTC 20 mg oral delayed release tablet 20 mg = 1 tab, Oral, Daily, # 30 tab, 0 Refill(s) Start Date: 03/16/23 Status: Ordered Procedures Procedure Date Related Diagnosis Body Site Status Colonoscopy Biopsy 1 04/27/24 Comp leted Appendectomy Completed Colonoscopy Completed Laparoscopic repair of ingui nal hernia using surgical mesh Completed Laparoscopic repair of umbilical hernia Completed 1auto-populated from documented surgical case Vital Signs Most recent to oldest [Reference Range]: 1 2 3 Temperature Temporal Artery [36-38 Deg C] 36.4 Deg C (04/27/24 9:30 AM) 36.9 Deg C (04/27/24 8:30 AM) Temperature Temporal Artery (DegF) [97.3-100 Deg F] 97.52 Deg F (04/27/24 9:30 AM) Peripheral Pulse Rate [60-100 bpm] 51 bpm *LOW* (04/27/24 9:50 AM) 54 bpm *LOW* (04/27/24 9:45 AM) 55 bpm *LOW* (04/27/24 9:40 AM) Respiratory Rate [12-24 br/min] 16 br/min (04/27/24 9:50 AM) 16 br/min (04/27/24 9:45 AM) 16 br/min (04/27/24 9:40 AM) Blood Pressure [90-140/60-90 mmHg] 134/89mmHg (04/27/24 9:50 AM) 120/96mmHg (04/27/24 9:45 AM) 106/76mmHg (04/27/24 9:40 AM) Mean Arterial Pressure, Cuff [65-140 mmHg] 104 mmHg (04/27/24 9:50 AM) 104 mmHg (04/27/24 9:45 AM) 86 mmHg (04/27/24 9:40 AM) Mean Arterial Pressure Cuff 103 mmHg (04/27/24 9:50 AM) 86 mmHg (04/27/24 9:40 AM) 78 mmHg (04/27/24 9:30 AM) Weight 95.25 kg (04/21/24 10:19 AM) Weight Dosing 95.250 kg (04/21/24 10:19 AM) Weight Estimated 98.00 kg (04/21/24 10:19 AM) Height 175.26 cm (04/21/24 10:19 AM) Social History Social History Type Response Tobacco Never tobacco user T obacco Use:. Sex Hospital Discharge Instructions Patient Education 04/27/2024 08:42:53 Diverticulosis Diverticulosis Diverticulosis is a condition that develops when small pouches (diverticula) form in the wall of the large intestine (colon). The colon is where water is absorbed and stool (feces) is formed. The pouches form when the inside layer of the colon pushes through weak spots in the outer layers of the colon. You may have a few pouches or many of them. The pouches usually do not cause problems unless they become inflamed or infected. When this happens, the condition is called diverticulitis. What are the causes? The cause of this condition is not known. What increases the risk? The following factors may make you more likely to develop this condition: ??? Being older than age 60. Your risk for this condition increases with age. Diverticulosis is rare among people younger than age 30. By age 80, many people have it. ??? Eating a low-fiber diet. ??? Having frequent constipation. ??? Being overweight. ??? Not getting enough exercise. ??? Smoking. ??? Taking kurp-ixq-rmjilzq pain medicines, like aspirin and ibuprofen. ??? Having a family history of diverticulosis. What are the signs or symptoms? In most people, there are no symptoms of this condition. If you do have symptoms, they may include: ??? Bloating. ??? Cramps in the abdomen. ??? Constipation or diarrhea. ??? Pain in the lower left side of the abdomen. How is this diagnosed? Because diverticulosis usually has no symptoms, it is most often diagnosed during an exam for othercolon problems. The condition may be diagnosed by: ??? Using a flexible scope to examine the colon (colonoscopy). ??? Taking an X-ray of the colon after dye has been put into the colon (barium enema). ??? Having a CT scan. How is this treated? You may not need treatment for this condition. Your health care provider may recommend treatment toprevent problems. You may need treatment if you have symptoms or if you previously had diverticulitis. Treatment may include: ??? Eating a high-fiber diet. ??? Taking a fiber supplement. ??? Taking a live bacteria supplement (probiotic). ??? Taking medicine to relax your colon. Follow these instructions at home: Medicines ??? Take lxii-ayj-xbexnsk and prescription medicines only as told by your health care provider. ??? If told by your health care provider, take a fiber supplement or probiotic. Constipation prevention Your condition may cause constipation. To prevent or treat constipation, you may need to: ??? Drink enough fluid to keep your urine pale yellow. ??? Take fdai-pad-rbcpxhe or prescription medicines. ??? Eat foods that are high in fiber, such as beans, whole grains, and fresh fruits and vegetables. ??? Limit foods that are high in fat and processed sugars, such as fried or sweet foods. General instructions ??? Try not to strain when you have a bowel movement. ??? Keep all follow-up visits as told by your health care provider. This is important. Contact a health care provider if you: ??? Have pain in your abdomen. ??? Have bloating. ??? Have cramps. ??? Have not had a bowel movement in 3 days. Get help right away if: ??? Your pain gets worse. ??? Your bloating becomes very bad. ??? You have a fever or chills, and your symptoms suddenly get worse. ??? You vomit. ??? You have bowel movements that are bloody or black. ??? You have bleeding from your rectum. Summary ??? Diverticulosis is a condition that develops when small pouches (diverticula) form in the wall of the large intestine (colon). ??? You may have a few pouches or many of them. ??? This condition is most often diagnosed during an exam for other colon problems. ??? Treatment may include increasing the fiber in your diet, taking supplements, or taking medicines. This information is not intended to replace advice given to you by your health care provider. Make sure you discuss any questions you have with your health care provider. Document Revised: 04/26/2020 Document Reviewed: 04/26/2020 [employer] Patient Education ?? 2022 [employer]. 04/27/2024 08:42:52 Colonoscopy, Adult, Care After Colonoscopy, Adult, Care After The following information offers guidance on how to care for yourself after your procedure. Your health care provider may also give you more specific instructions. If you have problems or questions, contact your health care provider. What can I expect after the procedure? After the procedure, it is common to have: ??? A small amount of blood in your stool for 24 hours after the procedure. ??? Some gas. ??? Mild cramping or bloating of your abdomen. Follow these instructions at home: Eating and drinking ??? Drink enough fluid to keep your urine pale yellow. ??? Follow instructions from your health care provider about eating or drinking restrictions. ??? Resume your normal diet as told by your health care provider. Avoid heavy or fried foods that are hard to digest. Activity ??? Rest as told by your health care provider. ??? Avoid sitting for a long time without moving. Get up to take short walks every 1???2 hours. This is important to improve blood flow and breathing. Ask for help if you feel weak or unsteady. ??? Return to your normal activities as told by your health care provider. Ask your health care provider what activities are safe for you. Managing cramping and bloating ??? Try walking around when you have cramps or feel bloated. ??? If directed, apply heat to your abdomen as told by your health care provider. Use the heat source that your health [...] to feel pain, heat, or cold. You have a greater risk of getting burned. General instructions ??? If you were given a sedative during the procedure, it can affect you for several hours. Do not drive or operate machinery until your health care provider says that it is safe. ??? For the first 24 hours after the procedure: ??? Do not sign important documents. ??? Do not drink alcohol. ??? Do your regular daily activities at a slower pace than normal. ??? Eat soft foods that are easy to digest. ??? Take zztt-kqv-jvpqtvh and prescription medicines only as told by your health care provider. ??? Keep all follow-up visits. This is important. Contact a health care provider if: ??? You have blood in your stool 2???3 days after the procedure. Get help right away if: ??? You have more than a small spotting of blood in your stool. ??? You have large blood clots in your stool. ??? You have swelling of your abdomen. ??? You have nausea or vomiting. ??? You have a fever. ??? You have increasing pain in your abdomen that is not relieved with medicine. These symptoms may be an emergency. Get help right away. Call 911. ??? Do not wait to see if the symptoms will go away. ??? Do not drive yourself to the hospital. Summary ??? After the procedure, it is common to have a small amount of blood in your stool. You may also have mild cramping and bloating of your abdomen. ??? If you were given a sedative during the procedure, it can affect you for several hours. Do not drive or operate machinery until your health care provider says that it is safe. ??? Get help right away if you have a lot of blood in your stool, nausea or vomiting, a fever, or increased pain in your abdomen. This information is not intended to replace advice given to you by your health care provider. Make sure you discuss any questions you have with your health care provider. Document Revised: 05/21/2022 Document Reviewed: 05/21/2022 [employer] Patient Education ?? 2022 [employer] 04/27/2024 08:42:51 Colon Polyps Colon Polyps Colon polyps are tissue growths inside the colon, which is part of the large intestine. They are one of the types of polyps that can grow in the body. A polyp may be a round bump or a mushroom-shapedgrowth. You could have one polyp or more than one. Most colon polyps are noncancerous (benign). However, some colon polyps can become cancerous over time. Finding and removing the polyps early can help prevent this. What are the causes? The exact cause of colon polyps is not known. What increases the risk? The following factors may make you more likely to develop this condition: ??? Having a family history of colorectal cancer or colon polyps. ??? Being older than 45 years of age. ??? Being younger than 45 years of age and having a significant family history of colorectal canceror colon polyps or a genetic condition that puts you at higher risk of getting colon polyps. ??? Having inflammatory bowel disease, such as ulcerative colitis or Crohn's disease. ??? Having certain conditions passed from parent to child (hereditary conditions), such as: ??? Familial adenomatous polyposis (FAP). ??? Sunshine syndrome. ??? Turcot syndrome. ??? Peutz???Jeghers syndrome. ??? MUTYH-associated polyposis (MAP). ??? Being overweight. ??? Certain lifestyle factors. These include smoking cigarettes, drinking too much alcohol, not getting enough exercise, and eating a diet that is high in fat and red meat and low in fiber. ??? Having had childhood cancer that was treated with radiation of the abdomen. What are the signs or symptoms? Many times, there are no symptoms. If you have symptoms, they may include: ??? Blood coming from the rectum during a bowel movement. ??? Blood in the stool (feces). The blood may be bright red or very dark in color. ??? Pain in the abdomen. ??? A change in bowel habits, such as constipation or diarrhea. How is this diagnosed? This condition is diagnosed with a colonoscopy. This is a procedure in which a lighted, flexible scope is inserted into the opening between the buttocks (anus) and then passed into the colon to examine the area. Polyps are sometimes found when a colonoscopy is done as part of routine cancer screening tests. How is this treated? This condition is treated by removing any polyps that are found. Most polyps can be removed during a colonoscopy. Those polyps will then be tested for cancer. Additional treatment may be needed depending on the results of testing. Follow these instructions at home: Eating and drinking ??? Eat foods that are high in fiber, such as fruits, vegetables, and whole grains. ??? Eat foods that are high in calcium and vitamin D, such as milk, cheese, yogurt, eggs, liver, fish, and broccoli. ??? Limit foods that are high in fat, such as fried foods and desserts. ??? Limit the amount of red meat, precooked or cured meat, or other processed meat that you eat, such as hot dogs, sausages, ramírez, or meat loaves. ??? Limit sugary drinks. Lifestyle ??? Maintain a healthy weight, or lose weight if recommended by your health care provider. ??? Exercise every day or as told by your health care provider. ??? Do not use any products that contain nicotine or tobacco, such as cigarettes, e-cigarettes, andchewing tobacco. If you need help quitting, ask your health care provider. ??? Do not drink alcohol if: ??? Your health care provider tells you not to drink. ??? You are , may be , or are planning to become . ??? If you drink alcohol: ??? Limit how much you use to: ??? 0???1 drink a day for women. ??? 0???2 drinks a day for men. ??? Know how much alcohol is in your drink. In the [place] one drink equals one 12 oz bottle of beer (355 mL), one 5 oz glass of wine (148 mL), or one 1?? oz glass of hard liquor (44 mL). General instructions ??? Take kwwq-fta-xgrrfbx and prescription medicines only as told by your health care provider. ??? Keep all follow-up visits. This is important. This includes having regularly scheduled colonoscopies. Talk to your health care provider about when you need a colonoscopy. Contact a health care provider if: ??? You have new or worsening bleeding during a bowel movement. ??? You have new or increased blood in your stool. ??? You have a change in bowel habits. ??? You lose weight for no known reason. Summary ??? Colon polyps are tissue growths inside the colon, which is part of the large intestine. They are one type of polyp that can grow in the body. ??? Most colon polyps are noncancerous (benign), but some can become cancerous over time. ??? This condition is diagnosed with a colonoscopy. ??? This condition is treated by removing any polyps that are found. Most polyps can be removed during a colonoscopy. This information is not intended to replace advice given to you by your health care provider. Make sure you discuss any questions you have with your health care provider. Document Revised: 01/16/2021 Document Reviewed: 01/16/2021 [employer] Patient Education ?? 2022 [employer] Discharge instructions * Angelina Burnham: PERFORM Event Display: Discharge Instructions Authored Date: [id number] ILEANA WILKSMOND :1955 Age:68 years Sex:Male Visit Date:04/27/2024 Primary Care Physician: [facility], [facility] Discharge Instructions We would like to thank you for allowing us to assist you with your healthcare needs. The following includes patient education materials and information regarding your injury/illness. Your Next Steps Discharge Orders Discharge Patient Instructions, You may experience some gas cramps and abdominal bloating Discharge Patient Instructions, Cramping and abdominal bloating should subside in 1 hour or so Discharge Patient Instructions, Passing gas rectally and belching is normal Discharge Patient Instructions, A light first meal may feel better in your stomach Discharge Patient Instructions, You may resume your normal activity in 24 hours Discharge Patient Instructions, It is important that a responsible adult drive you home today Discharge Patient Instructions, Do not sign any contracts, make any major decisions, or drive or operate machinery for 24 hours Discharge Patient Instructions, You should not be responsible for the care of others Discharge Patient Instructions, Avoid alcohol, tranquilizers, sleeping pills, or cold medicines for24 hours Discharge Patient Instructions, Call or come to emergency department if having unusual pain or severe abdominal pain Discharge Patient Instructions, Call or come to emergency department if vomiting blood or having black bowel movements, rectal bleeding or passing blood clots Discharge Patient Instructions, Call or come to emergency department for dizziness Discharge Patient Instructions, Call or come to emergency department chest pain, or shortness of breath Discharge Patient Instructions, Call or come to emergency department for fever greater than 100 ??F Discharge Patient Instructions, Call with any additional questions or concerns Medications What How Much When Instructions Next Dose Unchanged multivitamin (multivitamin adult, oral tablet) 1 tab Oral (given by mouth) Every day Unchanged omeprazole (PriLOSEC OTC 20 mg oral delayed release tablet) 1 tab Oral (given by mouth) Every day Your Summary Your Care Team Admitting Physician - Andrew Oliveira MD Attending Physician - Andrew Oliveira MD Primary Care Physician - [facility] MONTRELL Referring Physician - Andrew Oliveira MD Your Diagnosis Encounter for colonoscopy due to history of adenomatous colonic polyps GERD (gastroesophageal reflux disease) Personal history of colonic polyps Procedures Performed ???Colonoscopy Biopsy (04/27/2024)???Appendectomy???Colonoscopy???Laparoscopic repair of inguinal hernia using surgical mesh???Laparoscopic repair of umbilical hernia Discharge Vitals Temperature??(Temporal Artery) 97.5 ??F (36.4 ??C) Heart Rate??(Peripheral) 55 Respiratory Rate?? 16 Blood Pressure?? 106/76?? SpO2?? 97% Allergies Bee Stings sulfa drugs Education Materials Diverticulosis Diverticulosis is a condition that develops when small pouches (diverticula) form in the wall of the large intestine (colon). The colon is where water is absorbed and stool (feces) is formed. The pouches form when the inside layer of the colon pushes through weak spots in the outer layers of the colon. You may have a few pouches or many of them. The pouches usually do not cause problems unless they become inflamed or infected. When this happens, the condition is called diverticulitis. What are the causes? The cause of this condition is not known. What increases the risk? The following factors may make you more likely to develop this condition: ? Being older than age 60. Your risk for this condition increases with age. Diverticulosis is rare among people younger than age 30. By age 80, many people have it. ? Eating a low-fiber diet. ? Having frequent constipation. ? Being overweight. ? Not getting enough exercise. ? Smoking. ? Taking jzld-zsm-cvpxqfj pain medicines, like aspirin and ibuprofen. ? Having a family history of diverticulosis. What are the signs or symptoms? In most people, there are no symptoms of this condition. If you do have symptoms, they may include: ? Bloating. ? Cramps in the abdomen. ? Constipation or diarrhea. ? Pain in the lower left side of the abdomen. How is this diagnosed? Because diverticulosis usually has no symptoms, it is most often diagnosed during an exam for othercolon problems. The condition may be diagnosed by: ? Using a flexible scope to examine the colon (colonoscopy). ? Taking an X-ray of the colon after dye has been put into the colon (barium enema). ? Having a CT scan. How is this treated? You may not need treatment for this condition. Your health care provider may recommend treatment toprevent problems. You may need treatment if you have symptoms or if you previously had diverticulitis. Treatment may include: ? Eating a high-fiber diet. ? Taking a fiber supplement. ? Taking a live bacteria supplement (probiotic). ? Taking medicine to relax your colon. Follow these instructions at home: Medicines ? Take lelg-dlr-fdgqqrm and prescription medicines only as told by your health care provider. ? If told by your health care provider, take a fiber supplement or probiotic. Constipation prevention Your condition may cause constipation. To prevent or treat constipation, you may need to: ? Drink enough fluid to keep your urine pale yellow. ? Take faaz-uni-uqtgkct or prescription medicines. ? Eat foods that are high in fiber, such as beans, whole grains, and fresh fruits and vegetables. ? Limit foods that are high in fat and processed sugars, such as fried or sweet foods. General instructions ? Try not to strain when you have a bowel movement. ? Keep all follow-up visits as told by your health care provider. This is important. Contact a health care provider if you: ? Have pain in your abdomen. ? Have bloating. ? Have cramps. ? Have not had a bowel movement in 3 days. Get help right away if: ? Your pain gets worse. ? Your bloating becomes very bad. ? You have a fever or chills, and your symptoms suddenly get worse. ? You vomit. ? You have bowel movements that are bloody or black. ? You have bleeding from your rectum. Summary ? Diverticulosis is a condition that develops when small pouches (diverticula) form in the wall of the large intestine (colon). ? You may have a few pouches or many of them. ? This condition is most often diagnosed during an exam for other colon problems. ? Treatment may include increasing the fiber in your diet, taking supplements, or taking medicines. This information is not intended to replace advice given to you by your health care provider. Make sure you discuss any questions you have with your health care provider. Document Revised: 04/26/2020 Document Reviewed: 04/26/2020 [employer] Patient Education ?? 2022 [employer]. Colonoscopy, Adult, Care After The following information offers guidance on how to care for yourself after your procedure. Your health care provider may also give you more specific instructions. If you have problems or questions, contact your health care provider. What can I expect after the procedure? After the procedure, it is common to have: ? A small amount of blood in your stool for 24 hours after the procedure. ? Some gas. ? Mild cramping or bloating of your abdomen. Follow these instructions at home: Eating and drinking ? Drink enough fluid to keep your urine pale yellow. ? Follow instructions from your health care provider about eating or drinking restrictions. ? Resume your normal diet as told by your health care provider. Avoid heavy or fried foods that are hard to digest. Activity ? Rest as told by your health care provider. ? Avoid sitting for a long time without moving. Get up to take short walks every 1???2 hours. This isimportant to improve blood flow and breathing. Ask for help if you feel weak or unsteady. ? Return to your normal activities as told by your health care provider. Ask your health care provider what activities are safe for you. Managing cramping and bloating ? Try walking around when you have cramps or feel bloated. ? If directed, apply heat to your abdomen as told by your health care provider. Use the heat source that your health [...] to feel pain, heat, or cold. You have a greater risk of getting burned. General instructions ? If you were given a sedative during the procedure, it can affect you for several hours. Do not drive or operate machinery until your health care provider says that it is safe. ? For the first 24 hours after the procedure: ? Do not sign important documents. ? Do not drink alcohol. ? Do your regular daily activities at a slower pace than normal. ? Eat soft foods that are easy to digest. ? Take ejmd-dcp-cazfjjp and prescription medicines only as told by your health care provider. ? Keep all follow-up visits. This is important. Contact a health care provider if: ? You have blood in your stool 2???3 days after the procedure. Get help right away if: ? You have more than a small spotting of blood in your stool. ? You have large blood clots in your stool. ? You have swelling of your abdomen. ? You have nausea or vomiting. ? You have a fever. ? You have increasing pain in your abdomen that is not relieved with medicine. These symptoms may be an emergency. Get help right away. Call 911. ? Do not wait to see if the symptoms will go away. ? Do not drive yourself to the hospital. Summary ? After the procedure, it is common to have a small amount of blood in your stool. You may also have mild cramping and bloating of your abdomen. ? If you were given a sedative during the procedure, it can affect you for several hours. Do not drive or operate machinery until your health care provider says that it is safe. ? Get help right away if you have a lot of blood in your stool, nausea or vomiting, a fever, or increased pain in your abdomen. This information is not intended to replace advice given to you by your health care provider. Make sure you discuss any questions you have with your health care provider. Document Revised: 05/21/2022 Document Reviewed: 05/21/2022 [employer] Patient Education ?? 2022 [employer] Colon Polyps Colon polyps are tissue growths inside the colon, which is part of the large intestine. They are one of the types of polyps that can grow in the body. A polyp may be a round bump or a mushroom-shapedgrowth. You could have one polyp or more than one. Most colon polyps are noncancerous (benign). However, some colon polyps can become cancerous over time. Finding and removing the polyps early can help prevent this. What are the causes? The exact cause of colon polyps is not known. What increases the risk? The following factors may make you more likely to develop this condition: ? Having a family history of colorectal cancer or colon polyps. ? Being older than 45 years of age. ? Being younger than 45 years of age and having a significant family history of colorectal cancer or colon polyps or a genetic condition that puts you at higher risk of getting colon polyps. ? Having inflammatory bowel disease, such as ulcerative colitis or Crohn's disease. ? Having certain conditions passed from parent to child (hereditary conditions), such as: ? Familial adenomatous polyposis (FAP). ? Sunshine syndrome. ? Turcot syndrome. ? Peutz???Jeghers syndrome. ? MUTYH-associated polyposis (MAP). ? Being overweight. ? Certain lifestyle factors. These include smoking cigarettes, drinking too much alcohol, not gettingenough exercise, and eating a diet that is high in fat and red meat and low in fiber. ? Having had childhood cancer that was treated with radiation of the abdomen. What are the signs or symptoms? Many times, there are no symptoms. If you have symptoms, they may include: ? Blood coming from the rectum during a bowel movement. ? Blood in the stool (feces). The blood may be bright red or very dark in color. ? Pain in the abdomen. ? A change in bowel habits, such as constipation or diarrhea. How is this diagnosed? This condition is diagnosed with a colonoscopy. This is a procedure in which a lighted, flexible scope is inserted into the opening between the buttocks (anus) and then passed into the colon to examine the area. Polyps are sometimes found when a colonoscopy is done as part of routine cancer screening tests. How is this treated? This condition is treated by removing any polyps that are found. Most polyps can be removed during a colonoscopy. Those polyps will then be tested for cancer. Additional treatment may be needed depending on the results of testing. Follow these instructions at home: Eating and drinking ? Eat foods that are high in fiber, such as fruits, vegetables, and whole grains. ? Eat foods that are high in calcium and vitamin D, such as milk, cheese, yogurt, eggs, liver, fish, and broccoli. ? Limit foods that are high in fat, such as fried foods and desserts. ? Limit the amount of red meat, precooked or cured meat, or other processed meat that you eat, such as hot dogs, sausages, ramírez, or meat loaves. ? Limit sugary drinks. Lifestyle ? Maintain a healthy weight, or lose weight if recommended by your health care provider. ? Exercise every day or as told by your health care provider. ? Do not use any products that contain nicotine or tobacco, such as cigarettes, e- cigarettes, and chewing tobacco. If you need help quitting, ask your health care provider. ? Do not drink alcohol if: ? Your health care provider tells you not to drink. ? You are , may be , or are planning to become . ? If you drink alcohol: ? Limit how much you use to: ? 0???1 drink a day for women. ? 0???2 drinks a day for men. ? Know how much alcohol is in your drink. In the [place] one drink equals one 12 oz bottle of beer (355mL), one 5 oz glass of wine (148 mL), or one 1?? oz glass of hard liquor (44 mL). General instructions ? Take bmwu-ogi-sjnswqr and prescription medicines only as told by your health care provider. ? Keep all follow-up visits. This is important. This includes having regularly scheduled colonoscopies. Talk to your health care provider about when you need a colonoscopy. Contact a health care provider if: ? You have new or worsening bleeding during a bowel movement. ? You have new or increased blood in your stool. ? You have a change in bowel habits. ? You lose weight for no known reason. Summary ? Colon polyps are tissue growths inside the colon, which is part of the large intestine. They are one type of polyp that can grow in the body. ? Most colon polyps are noncancerous (benign), but some can become cancerous over time. ? This condition is diagnosed with a colonoscopy. ? This condition is treated by removing any polyps that are found. Most polyps can be removed during a colonoscopy. This information is not intended to replace advice given to you by your health care provider. Make sure you discuss any questions you have with your health care provider. Document Revised: 01/16/2021 Document Reviewed: 01/16/2021 [employer] Patient Education ?? 2022 [employer] Patient/Milk Treater Signature Patient Name:TEREZA WILKS I have received this information and my questions have been answered. Patient/Milk Treater Name: Patient/Milk Treater Signature: Relationship to Patient: Witness Name/Signature: Date: Electronically Signed on: 04/27/2024 09:45 EDTSigned by:ED History and physical note * Andrew Oliveira MD: PERFORM Event Display: History and Physical Authored Date: [id number] TEREZA WILKS :1955 Age:68 years Sex:Male Visit Date:04/27/2024 Primary Care Physician: MONTRELL CORDOBA Chief Complaint screenign colonoscopy History of Present Illness 68-year-old male??with a history of adenomatous colon polyps and an outside hospital.?? He has no first-degree relatives with colorectal cancer. Physical Exam Vitals & Measurements T:??36.9?C ??(Temporal Artery)?? HR:??65??(Peripheral)?? RR:??16?? BP:??169/84?? SpO2:??98%?? Pain Score:??0?? Well-developed well-nourished white male no acute distress Lungs: Clear to auscultation bilaterally Heart: Regular rhythm S1-S2 Abdomen: Soft nontender Assessment/Plan 1.??Encounter for colonoscopy due to history of adenomatous colonic polyps??Z12.11 ??Colonoscopy today. Orders: sodium chloride 0.9% flush, 10 mL, IV Flush, Injection, every 8 hr, First Dose: 04/27/24 7:00:00 EDT, Routine sodium chloride 0.9% flush, 10 mL, IV Flush, Injection, As Directed, First Dose: 04/27/24 6:35:00 EDT, Physician Stop, Routine Sodium Chloride 0.9% 1,000 mL, Total Volume (mL): 1,000, 1,000 mL, Soln-IV, IV, 50 mL/hr, Start Date: 04/27/24 6:35:00 EDT, 95.25 kg, Populate Charting Weight From Order, 2.15, m2 Blood Glucose Monitoring POC RE, 04/27/24 6:35:00 EDT, Stop date 04/27/24 6:35:00 EDT Diet Order, 04/27/24 6:35:00 EDT, Regular Discharge Patient, 04/27/24 6:35:00 EDT, Discharge when stable per SDS criteria Discharge Patient, 04/27/24 6:35:00 EDT, Discharge when stable per anesthesia criteria Discharge Patient Instructions, Avoid alcohol, tranquilizers, sleeping pills, or cold medicines for24 hours Discharge Patient Instructions, Do not sign any contracts, make any major decisions, or drive or operate machinery for 24 hours Discharge Patient Instructions, You should not be responsible for the care of others Discharge Patient Instructions, You may resume your normal activity in 24 hours Discharge Patient Instructions, It is important that a responsible adult drive you home today Discharge Patient Instructions, Call with any additional questions or concerns Discharge Patient Instructions, Passing gas rectally and belching is normal Discharge Patient Instructions, Call or come to emergency department for fever greater than 100 ??F Discharge Patient Instructions, A light first meal may feel better in your stomach Discharge Patient Instructions, You may experience some gas cramps and abdominal bloating Discharge Patient Instructions, Call or come to emergency department for dizziness Discharge Patient Instructions, Cramping and abdominal bloating should subside in 1 hour or so Discharge Patient Instructions, Call or come to emergency department chest pain, or shortness of breath Discharge Patient Instructions, Call or come to emergency department if having unusual pain or severe abdominal pain Discharge Patient Instructions, Call or come to emergency department if vomiting blood or having black bowel movements, rectal bleeding or passing blood clots Obtain consent, 04/27/24 6:35:00 EDT, Constant Order, 04/27/24 6:35:00 EDT Peripheral IV Insertion, 04/27/24 6:35:00 EDT Saline Lock Convert From IV, 04/27/24 6:35:00 EDT, Stop date 04/27/24 6:35:00 EDT Vital Signs, 04/27/24 6:35:00 EDT, Stop date 04/27/24 6:35:00 EDT, As needed Vital Signs, 04/27/24 6:35:00 EDT, Stop date 04/27/24 6:35:00 EDT, Routine Vital Signs, 04/27/24 6:35:00 EDT, Once, Stop date 04/27/24 6:35:00 EDT Problem List/Past Medical History Ongoing No qualifying data Historical No qualifying data Procedure/Surgical History ???Appendectomy???Colonoscopy???Laparoscopic repair of inguinal hernia using surgical mesh???Laparoscopic repair of umbilical hernia Medications Inpatient Sodium Chloride 0.9% 1,000 mL, 1000 mL, IV sodium chloride 0.9% flush, 10 mL, IV Flush, every 8 hr sodium chloride 0.9% flush, 10 mL, IV Flush, As Directed Home multivitamin adult, oral tablet, 1 tab, Oral, Daily PriLOSEC OTC 20 mg oral delayed release tablet, 20 mg= 1 tab, Oral, Daily Allergies Bee Stings sulfa drugs Social History Alcohol Past- Comments: Pt states he quit drinking 10/2022 Electronic Cigarette/Vaping Electronic Cigarette Use: Never. Tobacco Never tobacco user Tobacco Use:. Electronically Signed on 04/27/2024 09:00 EDT Andrew Oliveira MD Patient Care team information Care Team Personnel Name: MONTRELL CORDOBA Position: No Access Member Role: Primary Care Physician Address: Address: [facility] [address] [place] [address]- Care Team Related Persons Name: JOAQUIN WILKS
--- OUTSIDE RECORDS SUMMARY | 2024-07-21 18:19 | XMS_ITS | Clinical Summary ---
Author Organization [facility] Address [address] [place] [address] Care Team Providers Care Apparel Manager Name Role Phone Unknown, Provider Primary Care Provider Encounters Date Type Department Care Team Description 04/28/2024 Lab Requisition [facility] - [facility] [address] [place] [address] Andrew Oliveira MD Personal history of colonic polyps; Encounter for screening for malignant neoplasm of colon; Gastro-esophageal reflux disease without esophagitis from Last 3 Months Social History Tobacco Use Types Packs/Day Years Used Date Smoking Tobacco: Never Assessed Sex and Gender Information Value Date Recorded Sex Assigned at Not on file Gender Identity Not on file Sexual Orientation Not on file Plan of Treatment Health Maintenance Due Date Last Done Comments Hepatitis C Screen 1955 RSV Immunization ( o r 60+ Years) (1 - 1-dose 60+ series) 2014 Fall Risk Screening 2019 COVID-19 Vaccine ( season) 2023 Procedures Procedure Name Priority Date/Time Associated Diagnosis Comments SURGICAL PATHOLOGY Today 04/27/2024 9: 13 EDT Personal history of colonic polyps Encounter for screening for malignant neoplasm of colon Gastro-esophageal reflux disease without esophagitis from Last 3 Months Results * SURGICAL PATHOLOGY (04/27/2024 9:13 EDT) Note to Patient The following pathology results have been interpreted by your pathologist and may be available to you before your health provider has had the opportunity to review them. Please allow time for your provider to receive these results and explore management options, if applicable. 05/02/2024 15:10 [facility] Final Diagnosis A. CECUM, POLYP, BIOPSY: - Colonic mucosa with lymphoid aggregate. - Negative for dysplasia. B. MID TRANSVERSE COLON, POLYP, BIOPSY: - Tubular adenoma. C. COLON, SPLENIC FLEXURE, POLYP, BIOPSY: - Tubular adenoma fragments. 05/02/2024 15:10 [facility] Diagnosis Comment The technical component of the specimen processing was performed at the Pathology Department, [address] [place] [address] (CLIA [id number]). The professional component of the specimen evaluation (slide review and issuing of the final diagnosis) was performed at [facility], [address] [place] [address] (CLIA License Number [id number]). 05/02/2024 15:10 [facility] Attestation By the signature below, the attending physician certifies that they have 1) personally conducted a gross and/or microscopic examination of the described specimen(s), and/or personally interpreted the results of laboratory testing of the described specimen(s), and 2) personally rendered or confirmed the above diagnosis. 05/02/2024 15:10 [facility] at 1510 Clinical History Screening colonoscopy, diverticulosis; clinical diagnosis code: K21.9, Z12.11, Z86.010 05/02/2024 15:10 [facility] Gross Description A. Received in [...] CLEOPATRA LYONS(ASCP) 04/29/2024 10:29 05/02/2024 15:10 EDT [facility] Performing Lab [facility] 05/02/2024 15:10 EDT [facility] Scanned Images 05/02/2024 15:10 EDT [facility] Tissue POLYP OF SPLENIC FLEXURE OF COLON / Unknown 04/27/2024 9:13 EDT 04/28/2024 20:54 EDT Tissue specimen (specimen) TRANSVERSE COLON STRUCTURE / Unknown 04/27/2024 9:13 EDT 04/28/2024 20:54 EDT Tissue specimen (specimen) POLYP OF SPLENIC FLEXURE OF COLON / Unknown 04/27/2024 9:13 EDT 04/28/2024 20:54 EDT Andrew Oliveira MD PATHOLOGY ORD ERABLES [facility] [address] [place] [address] from Last 3 Months Care Teams Apparel Manager Relationship Specialty Start Date End Date Unknown, Provider, PCP - General 02/17/11
--- OUTSIDE RECORDS SUMMARY | 2024-07-21 18:19 | XMS_ITS | Encounter Summary ---
Author Organization [facility] Address [address] [place] [id number] Care Team Providers Care Accounts Receivable Coordinator Name Role Phone Unknown, Provider Primary Care Provider Encounter Details Date Type Department Care Team (Late st Contact Info) Description 02/17/2011 Results Only [facility] - [facility] ([facility] [address], [place] [id number] Cece To MD [address] [place], [place] [address] Social History Tobacco Use Types Packs/Day Years Used Date Smoking Tobacco: Never Assessed Sex and Gender Information Value Date Recorded Sex Assigned at Not on file Gender Identity Not on file Sexual Orientation Not on file documented as of this encounter Plan of Treatment Not on file documented as of this encounter Procedures Procedure Name Priority Date/Time Associated Diagnosis Comments SURGICAL PATHOLOGY Routine 02/17/2011 0:00 EDT documented in this encounter Results * SURGICAL PATHOLOGY (02/17/2011 0:00 EDT) Pathology Report: SURGICAL PATHOLOGY REPORT ? Reports generated via electronic interface contain original data; ? however they are lacking the format of the original report. ? Caution should be taken when reading/interpreti ng unformatted reports. ? Name: ? EFE, TEREZA T ? Accession #: ? [id number] ? : ? 1955 (Age: 55) ??M ? Collect Date: ? 02/17/2011 ? Location: ? [facility] ? Receive Date: ? 02/17/2011 ? Provider: CECE TO MD ? Copy to: JONH WHATLEY MD ? Final Pathologic Diagnosis: ? A. ?Colon, cecum, polyp, biopsies: ? 1. ?Colonic mucosa with prominent lymphoid complex. See Comment. ? B. ?Colon, descending, polyp, biopsy: ? 1. ?Tubular adenoma. ? C. ?Rectum, polyps, biopsies: ? 1. ?Hyperplastic polyp. ? Comment: ? Deeper levels were examined in block A. ? Document reviewed and electronically signed by: ? ERICA S MARLEY MD ? Report ??Date: 02/19/2011 16:24 ? By the signature above, the attending physician certifies that he/she has ? personally conducted a gross and/or microscopic examination of the described ? specimens and rendered or confirmed the above diagnosis. ? Specimen(s) Received: ? A. ?Cecal polyp ? B. ? descending colon polyp ? C. ? Rectal polyps x2 ? Clinical History: ? Colorectal screen ? Gross Description: ? Received in formalin labelled Tereza Mast and cecal polyp are ? three pink-vila irregular soft tissues ranging from 0.1 x 0.1 x 0.1 cm to 0.4 x ?? 0.3 x 0.2 cm. ??Submitted in toto as (A). ? Received in formalin labelled Tereza Mast and ? descending colon polyp is a single 0.4 x 0.2 x 0.2 cm pink-vila irregular soft tissue. ??Submitted in ? toto as (B). ? Received in formalin labelled Tereza Mast and rectal polyps x2 are two pink-vila irregular soft tissues, 0.3 x 0.2 x 0.2 cm and 0.4 x 0.2 x 0.2 cm. ? Submitted in toto as (C). ??(Nikita Dan)/eliane ? End of Report ? [facility] 02/17/2011 02/17/2011 17: 39 EDT Cece To MD PATHOLOGY ORDERABLES Performing Organization Address City/State/[facility] Co de Phone Number [facility] [address] [place] [address] documented in this encounter Visit Diagnoses Not on filedocumented in this encounter Care Teams Accounts Receivable Coordinator Relationship Specialty Start Date End Date Unknown, Provider, PCP - General 02/17/11 documented as of this encounter
--- OUTSIDE RECORDS SUMMARY | 2024-07-21 18:19 | XMS_ITS | Referral Summary ---
Author Organization [facility] Address [address] [place] [address] Care Team Providers Care English Language Arts Teacher Name Role Phone Unknown, Provider Primary Care Provider Encounters Date Type Department Care Team Description 04/28/2024 Lab Requisition [facility] Pathology & Laboratory Medicine - [facility] [address] [place] [address] Andrew Oliveira MD Personal history of colonic [...] Orientation Not on file Plan of Treatment Not on file Procedures Procedure Name Priority Date/Time Associated Diagnosis [...] explore management options, if applicable. 05/02/2024 15:10 EDT [facility] Final Diagnosis A. CECUM, POLYP, BIOPSY: - Colonic mucosa with lymphoid aggregate. - Negative for dysplasia. B. MID TRANSVERSE COLON, POLYP, BIOPSY: - Tubular adenoma. C. COLON, SPLENIC FLEXURE, POLYP, BIOPSY: - Tubular adenoma fragments. 05/02/2024 15:10 [facility] Diagnosis Comment The technical component of the specimen processing was performed at the [facility] Pathology Department, [address] [place] [address] (CLIA [id number]). The professional component of the specimen evaluation (slide review and issuing of the final diagnosis) was performed at [facility], [address] [place] [address] (CLIA License Number [id number]). 05/02/2024 15:10 [facility] Attestation By the signature below, the attending physician certifies that they have 1) personally conducted a gross and/or microscopic examination of the described specimen(s), and/or personally interpreted the results of laboratory testing of the described specimen(s), and 2) personally rendered or confirmed the above diagnosis. 05/02/2024 15:10 [facility] at 1510 Clinical History Screening colonoscopy, diverticulosis; clinical diagnosis code: K21.9, Z12.11, Z86.010 05/02/2024 15:10 [facility] Gross Description A. Received in [...] C1. CLEOPATRA LYONS(ASCP) 04/29/2024 10:29 05/02/2024 15:10 [facility] Performing Lab [facility] 05/02/2024 15:10 [facility] Scanned Images 05/02/2024 15:10 EDT [facility] Tissue POLYP OF SPLENIC FLEXURE OF COLON / Unknown 04/27/2024 9:13 EDT 04/28/2024 20:54 EDT Tissue specimen (specimen) TRANSVERSE COLON STRUCTURE / Unknown 04/27/2024 9:13 EDT 04/28/2024 20:54 EDT Tissue specimen (specimen) POLYP OF SPLENIC FLEXURE OF COLON / Unknown 04/27/2024 9:13 EDT 04/28/2024 20:54 EDT Andrew Oliveira MD PATHOLOGY ORD ERABLES [facility] [address] [place] [address] from Last 3 Months Care Teams English Language Arts Teacher Relationship Specialty Start Date End Date Unknown, ProviderMD PCP - General 02/17/11
--- OUTSIDE RECORDS SUMMARY | 2024-07-21 18:19 | XMS_ITS | Encounter Summary ---
Author Organization [facility] Address [address] [place] [address] Care Team Providers Care Textile Conversion Manager Name Role Phone Unknown, Provider Primary Care Provider [phone] Encounter Details Date Type Department Care Team (Late st Contact Info) Description 02/05/2024 Lab Requisition [facility] Pathology & Laboratory Medicine - [address] [id number] Outr Resulting Lab, Provider Social History Tobacco Use Types Packs/Day Years Used Date Smoking Tobacco: Never Assessed Sex and Gender Information Value Date Recorded Sex Assigned at Not on file Gender Identity Not on file Sexual Orientation Not on file documented as of this encounter Plan of Treatment Not on file documented as of this encounter Procedures Procedure Name Priority Date/Time Associated Diagnosis Comments PSA TOTAL, DIAGNOSTIC Routine 02/04/2024 14:40 EDT documented in this encounter Results * PSA TOTAL, DIAGNOSTIC (02/04/2024 14:40 EDT) PSA 1.4 <=4.5 ng/mL 02/05/2024 18:08 EDT [facility] Blood VENOUS BLOOD / Unknown 02/04/2024 14:40 EDT 02/05/2024 17:25 EDT Narrative [facility] - 02/05/2024 18:08 EDT NOTE: Serum PSA concentration should not be interpreted as absolute evidence for the presence or absence of malignant disease. Assayed on Siemens ADVChaseFutureaur XPT using chemiluminescent technology.??Values obtained by using different assay methods cannot be used interchangeably. Provider Outr Resulting Lab CHEMISTRY & BLOOD GAS ORDERABLES [facility] [address] [place] [phone] documented in this encounter Visit Diagnoses Not on filedocumented in this encounter Care Teams Textile Conversion Manager Relationship Specialty Start Date End Date Unknown, Provider, PCP - General 02/17/11 documented as of this encounter
[2024-07-21 19:32] LABS: Hemoglobin A1C 5.6 % (<5.7)
[2024-07-21 19:44] LABS: Calculated LDL 129 mg/dL (<100); Cholesterol 223 mg/dL (<200); HDL Cholesterol 49 mg/dL (40-60); Triglyceride 227 mg/dL (<150); Vitamin D 25 Total 27.9 ng/mL (30-100)
== END 2024-07-21 18:17 | disposition home or self-care (01) ==
LOC: NCHCN 18:16
PROVIDERS: PCP Family Medicine; Visit Provider Nurse Practitioner Family
DX: E78.5 Hyperlipidemia, unspecified (principal); R73.03 Prediabetes; E55.9 Vitamin D deficiency, unspecified
CPT/HCPCS: 80061; 82306; 83036

== ENCOUNTER 2025-03-10 17:10 | Outpatient (REF) | payer MEDICARE, SELFPAY ==
[2025-03-10 19:34] LABS: Hemoglobin A1C 5.8 % (<5.7)
[2025-03-10 19:58] LABS: ALT 29 U/L (16-63); AST 26 U/L (15-37); Alkaline Phosphatase 113 U/L (46-116); Anion Gap 7.9 mmol/L (3-11); BUN 16 mg/dL (7-18); Bilirubin, Total 0.4 mg/dL (0.2-1.0); CO2 28.1 mmol/L (21.0-32.0); CREATININE 0.7 mg/dL (0.70-1.30); Calcium 9.2 mg/dL (8.5-10.1); Calculated LDL 91 mg/dL (<100); Chloride 103 mmol/L (98-107); Cholesterol 212 mg/dL (<200); Estimated GFR 99.12 (mL/min/1.73m2); Glucose 121 mg/dL (74-106); HDL Cholesterol 44 mg/dL (>or=40); Potassium 3.8 mmol/L (3.5-5.1); Sodium 139 mmol/L (136-145); Total Protein 7.7 g/dL (6.4-8.2); Triglyceride 389 mg/dL (<150); Vitamin D 25 Total 22 ng/mL (30-100)
== END 2025-03-10 17:11 | disposition home or self-care (01) ==
LOC: NCHCN 17:10
PROVIDERS: PCP Family Medicine; Visit Provider Nurse Practitioner Family
DX: I10 Essential (primary) hypertension (principal); R73.03 Prediabetes; E55.9 Vitamin D deficiency, unspecified; E78.5 Hyperlipidemia, unspecified
CPT/HCPCS: 80053; 80061; 82306; 83036

== ENCOUNTER 2025-04-20 11:27 | Outpatient (REF) | payer MEDICARE, SELFPAY ==
[2025-04-20 16:17] LABS: Hemoglobin A1C 5.9 % (<5.7)
[2025-04-20 16:48] LABS: ALT 38 U/L (16-63); AST 28 U/L (15-37); Albumin 4.1 g/dL (3.4-5.0); Alkaline Phosphatase 91 U/L (46-116); Anion Gap 11.6 mmol/L (3-11); BUN 23 mg/dL (7-18); Bilirubin, Total 0.9 mg/dL (0.2-1.0); CO2 24.4 mmol/L (21.0-32.0); Calcium 9.0 mg/dL (8.5-10.1); Calculated LDL 150 mg/dL (<100); Chloride 105 mmol/L (98-107); Cholesterol 230 mg/dL (<200); Estimated GFR 95.21 (mL/min/1.73m2); Glucose 104 mg/dL (74-106); HDL Cholesterol 50 mg/dL (>or=40); Potassium 4.3 mmol/L (3.5-5.1); Sodium 141 mmol/L (136-145); TSH 1.92 uIU/mL (0.36-3.74); Total Protein 7.8 g/dL (6.4-8.2); Triglyceride 150 mg/dL (<150); Vitamin D 25 Total 31 ng/mL (30-100)
== END 2025-04-20 11:28 | disposition home or self-care (01) ==
LOC: NCHCN 11:27
PROVIDERS: PCP Family Medicine; Visit Provider Nurse Practitioner Family
DX: I10 Essential (primary) hypertension (principal); R73.03 Prediabetes; E55.9 Vitamin D deficiency, unspecified; E78.2 Mixed hyperlipidemia
CPT/HCPCS: 80053; 80061; 82306; 83036; 84439; 84443

== ENCOUNTER 2025-05-03 15:32 | Observation (INO) | payer MEDICARE, SELFPAY ==
[2025-05-03] VITALS (30 sets, daily range): BP systolic 119–183; BP diastolic 65–96; PULSE 75–146; RESP 17–33; TEMP 36.7–37.4; O2SAT 91–95
--- NOTE | 2025-05-03 15:30 | RT.EKG_ITS ---
APPROVED REPORT Exam: Resting ECG Reason for Exam: SoB Patient Location: E HR:151 bpm ECG Measurements Heart Rate 151 AXIS MI [id number] P [id number] QRSd 93 QRS -77 QT 323 T 77 QTc 522 Conclusion Atrial fibrillation with RVR
--- NOTE | 2025-05-03 15:45 | DI.RAD_ITS ---
Exam(s) XR PORTABLE CHEST AP EXAM: XR PORTABLE CHEST AP CLINICAL HISTORY: sob TECHNIQUE: 2D digital imaging was performed. COMPARISON: CR XR CHEST 2V PA LATERAL from 03/17/2024 FINDINGS: Exam is limited by suboptimal pulmonary inflation. There is also suboptimal technique. LUNGS: Bilateral infiltrates. Findings could represent CHF versus bilateral pneumonia. No gross pleural abnormality seen. HEART: The heart appears enlarged which may in part be secondary to portable technique, poor pulmonary inflation and semi upright positioning. AORTA: Normal diameter. BONES: Unremarkable for age. Soft tissues: Unremarkable. IMPRESSION: Limited exam. Bilateral pulmonary infiltrates which may represent CHF versus bilateral pneumonia. DATA REPOSITORY: RADIATION DOSE DELIVERED:
[2025-05-03 16:10] LABS: Abs Immature Grans 0.05 10^3/uL (0.0-0.06); HCT 40.4 % (40.0-50.0); HGB 13.7 g/dL (13.5-17.5); Immature Grans % 0.4 %; MCH 30.8 pg (27.0-33.0); MCHC 33.9 % (32.0-36.0); MCV 91 fL (80-95); MPV 10.9 fL (8.0-11.0); Platelet Count 146 10^3/uL (130-400); RBC 4.45 10^6/uL (4.36-5.78); RDW 12.7 % (11.8-14.1); RDW-SD 41.8 fL; WBC 11.14 10^3/uL (4.4-10.8)
[2025-05-03] MEDS: dilTIAZem 25 MG/5 ML VIAL IVP ×2 (16:11→16:34)
[2025-05-03] MEDS: Normal Saline Flush 10 ML SYR IVP ×2 (16:12→20:33)
[2025-05-03 16:20] LABS: INR 1.1 (0.9-1.1); PTT Activated 26.1 sec (20.6-30.2); Prothrombin Time 11.3 sec (9.1-11.1)
[2025-05-03 16:30] LABS: ALT 27 U/L (16-63); AST 24 U/L (15-37); Albumin 3.9 g/dL (3.4-5.0); Alkaline Phosphatase 92 U/L (46-116); Anion Gap 13.6 mmol/L (3-11); BUN 18 mg/dL (7-18); Bilirubin, Total 1.7 mg/dL (0.2-1.0); CO2 22.4 mmol/L (21.0-32.0); Calcium 9.1 mg/dL (8.5-10.1); Chloride 103 mmol/L (98-107); Estimated GFR 95.21 (mL/min/1.73m2); Glucose 99 mg/dL (74-106); Magnesium 1.9 mg/dL (1.8-2.4); NT-proBNP 525 pg/mL (<300); Potassium 3.7 mmol/L (3.5-5.1); Sodium 139 mmol/L (136-145); Total Protein 8.2 g/dL (6.4-8.2); Troponin I 9 ng/L (<or=76)
--- NOTE | 2025-05-03 16:52 | HPE_ITS ---
Date of service: 05/03/25 Time of Service: 16:52 Assessment and Plan Assessment and plan (1) Persistent atrial fibrillation with RVR: Status: Acute Assessment and plan: - Patient diagnosed with A-fib about 2 weeks ago was started on atenolol - For the last few days he has had increased heart rate progressed to some shortness of breath - Heart rate was found to be in the high 130s in the emergency department was given 2 doses of 25 mg IV diltiazem with improvement of his heart rate - Given appropriate physiologic response to IV diltiazem, patient will stop atenolol and be started on 30 mg p.o. diltiazem twice daily - Will monitor heart rate and adjust rate control medication as needed History of Present Illness History of Present Illness Chief Complaint: Elevated heart rate Narrative: 69-year-old male with recent diagnosis of A-fib presents to the emergency department with shortness of breath and elevated heart rate. He states that he has been taking atenolol for about 2 weeks,, initially felt well but then his heart rate continued to be elevated and he felt short of breath prompting him to present to the emergency department. He denied any lightheadedness, dizziness, chest pain. In the emergency department the patient was noticed having an elevated heart rate of up to 38 bpm and patient was noted as being in A-fib. He was given 2 doses of IV diltiazem 25 mg did have improvement of his heart rate down to the 80s. EKG did not show any other acute findings and CBC and CMP were unremarkable. At which time emergency room provider paged hospitalist for admission for patient with A-fib RVR. Review of Systems All systems reviewed & are unremarkable except as noted in HPI and below PFSH All Active Problems (Updated 05/03/25 @ 16:53 by August Fox MD) Persistent atrial fibrillation with RVR (Acute) Social History Smoking risk assessment performed?: No Meds Allergies and Home Medications Allergies Allergy/AdvReac Type Severity Reaction Status Date / Time bee venom protein (honey bee) Allergy Intermediate Hives Verified 05/03/25 16:21 Sulfa (Sulfonamide Allergy Intermediate Skin Rash Verified 05/03/25 16:21 Antibiotics) sulfamethoxazole (From Allergy Intermediate Skin Rash Verified 05/03/25 16:21 Bactrim) trimethoprim (From Bactrim) Allergy Intermediate Skin Rash Verified 05/03/25 16:21 Home Medications ?Medication ?Instructions ?Recorded ?Confirmed ?Type atenolol 25 mg tablet 12.5 mg PO DAILY 05/03/25 History ergocalciferol (vitamin D2) 1,250 1,250 mcg PO .weekly 05/03/25 05/03/25 History mcg (50,000 unit) capsule rosuvastatin 5 mg tablet 5 mg PO DAILY 05/03/2505/03 History Exam Narrative Exam Narrative: Well-appearing older gentleman laying in bed in no acute distress, ANO x 4, heart irregularly irregular with rates in the low 100s, lungs good auscultation bilaterally, abdomen soft, nontender, nondistended Results Labs 05/03/25 16:00 05/03/25 16:00 Labs: Laboratory Results - last 24 hr 05/03/25 16:00 WBC 11.14 H RBC 4.45 Hgb 13.7 Hct 40.4 MCV 91 MCH 30.8 MCHC 33.9 RDW 12.7 Plt Count 146 MPV 10.9 Immature Gran % 0.4 Neutrophils % 75.1 Lymphocytes % 12.3 Monocytes % 11.1 Eosinophils % 0.7 Basophils % 0.4 Nucleated RBC % 0.0 Absolute Neutrophils 8.37 H Absolute Lymphocytes 1.37 Absolute Monocytes 1.24 H Absolute Eosinophils 0.08 Absolute Basophils 0.04 PT 11.3 H INR 1.1 APTT 26.1 Sodium 139 Potassium 3.7 Chloride 103 Carbon Dioxide 22.4 Anion Gap 13.6 H BUN 18 Creatinine 0.8 Est GFR (CKD-EPI 2020) 95.21 Glucose 99 Calcium 9.1 Magnesium 1.9 Total Bilirubin 1.7 H AST 24 ALT 27 Alkaline Phosphatase 92 Troponin I 9 NT-Pro-B Natriuret Pep 525 H Total Protein 8.2 Albumin 3.9 Last Vital Signs Temp 99.3 F 05/03/25 15:41 Pulse 76 05/03/25 16:40 Resp 22 05/03/25 16:40 BP 142/90 H 05/03/25 16:39 Pulse Ox 91 L 05/03/25 16:32 Time Spent Time spent with Patient: >75 minutes Time was spent: preparing to see the patient(eg.review tests), obtaining and/or reviewing separately otained hiistory, ordering medications,tests, procedures, referring, communicating with other health customer care voice consultant, indepentently interpreting results, counseling the patient and care coordination
[2025-05-03] MEDS: Aspirin 325 MG TAB PO (16:54)
[2025-05-03] MEDS: Furosemide 40 MG/4 ML VIAL IVP (16:55)
[2025-05-03 17:35] LABS: Troponin I 9 ng/L (<or=76)
--- NOTE | 2025-05-03 17:37 | W.ED.GENAD ---
Discharge Plan Disposition Patient Disposition: Admit to [facility] Condition: Improving Discharge Details Clinical Impression: Persistent atrial fibrillation with RVR Primary Care Provider: Kim York ED Provider: Cherie Feng Home Meds and New Rx's Prescriptions: No Action atenolol 25 mg tablet 12.5 mg PO DAILY Patient Comments: TAKE ONE-HALF TABLET BY MOUTH EVERY DAY rosuvastatin 5 mg tablet 5 mg PO DAILY Patient Comments: TAKE ONE TABLET BY MOUTH EVERY DAY ergocalciferol (vitamin D2) 1,250 mcg (50,000 unit) capsule 1,250 mcg PO .weekly Patient Comments: TAKE ONE CAPSULE BY MOUTH ONCE WEEKLY FOR 12 WEEKS THEN SWITCH TO [id number] 1000-2000IU PER DAY HPI General Date/Time Provider Initiated Documentation: 05/03/25 15:43. Limitations to Documentation: no limitations. Information obtained by: patient. HPI Narrative: 69-year-old gentleman without significant past medical history presents for evaluation of worsening shortness of breath. He was seen at urgent care today and referred here regarding an abnormal EKG. Patient reports that about 2 weeks ago he had a checkup with his primary care provider and was surprised to discover that his heart rate was very elevated. He states that his doctor performed an EKG there was nothing wrong so he was started on atenolol 1 dose daily. He states that since that time he has had progressively worsening shortness of breath. He states that the symptoms are worse with exertion. He has been having a cough. He reports a subjective fever at home as well. He denies any chest pain. He denies any leg swelling or weight gain. Related Data Home Medications ?Medication ?Instructions ?Recorded ?Confirmed atenolol 25 mg tablet 12.5 mg PO DAILY 05/03/25 05/03/25 ergocalciferol (vitamin D2) 1,250 1,250 mcg PO .weekly 05/03/25 05/03/25 mcg (50,000 unit) capsule rosuvastatin 5 mg tablet 5 mg PO DAILY 05/03/25 05/03/25 Allergies Allergy/AdvReac Type Severity Reaction Status Date / Time bee venom protein (honey bee) Allergy Intermediate Hives Verified 05/03/25 16:21 Sulfa (Sulfonamide Allergy Intermediate Skin Rash Verified 05/03/25 16:21 Antibiotics) sulfamethoxazole (From Allergy Intermediate Skin Rash Verified 05/03/25 16:21 Bactrim) trimethoprim (From Bactrim) Allergy Intermediate Skin Rash Verified 05/03/25 16:21 General Stated Complaint: SOB DENNIS: 3 Exam Narrative Exam Narrative: Review of Systems: All systems reviewed & are unremarkable except as noted in HPI and below Well-developed, no acute distress NCAT Irregularly irregular tachycardia, blood pressure normal No significant hypoxia, crackles in bilateral bases Nondistended abdomen , soft nontender Extremities w/o edema no focal neurologic deficits Course Vital Signs Vital signs: Vital Signs Temperature 37.4 C 05/03/25 15:36 Pulse 122 H 05/03/25 15:36 Respiratory Rate 20 05/03/25 15:36 Blood Pressure 183/93 H 05/03/25 15:36 Pulse Oximetry 93 05/03/25 15:36 Temperature 37.4 C 05/03/25 15:41 Temperature Source Oral 05/03/25 15:41 Pulse 83 05/03/25 17:06 Pulse 91 H 05/03/25 17:06 Respiratory Rate 21 05/03/25 17:06 Respiratory Effort Short of Breath 05/03/25 16:14 Respiratory Depth Normal 05/03/25 16:14 Respiratory Pattern Tachypnea 05/03/25 16:14 Blood Pressure 131/76 05/03/25 17:06 Blood Pressure Mean 92 05/03/25 17:06 Blood Pressure Position Sitting 05/03/25 15:41 Pulse Oximetry 93 05/03/25 17:06 Oxygen Delivery Method Room Air 05/03/25 15:41 Oxygen Flow Rate 0 05/03/25 15:41 Lab/Test Results Lab/Test Results: Laboratory Tests Range/Units 05/03/25 16:00 WBC (4.4-10.8) 10^3/uL 11.14 H RBC (4.36-5.78) 10^6/uL 4.45 Hgb (13.5-17.5) g/dL 13.7 Hct (40.0-50.0) % 40.4 MCV (80-95) fL 91 MCH (27.0-33.0) pg 30.8 MCHC (32.0-36.0) % 33.9 RDW (11.8-14.1) % 12.7 Plt Count (130-400) 10^3/uL 146 MPV (8.0-11.0) fL 10.9 Immature Gran % % 0.4 Neutrophils % % 75.1 Lymphocytes % % 12.3 Monocytes % % 11.1 Eosinophils % % 0.7 Basophils % % 0.4 Nucleated RBC % (0.0-0.3) % 0.0 Absolute Neutrophils (1.2-6.7) 10^3/uL 8.37 H Absolute Lymphocytes (1.2-3.4) 10^3/uL 1.37 Absolute Monocytes (0.1-0.8) 10^3/uL 1.24 H Absolute Eosinophils (0.0-0.7) 10^3/uL 0.08 Absolute Basophils (0.0-0.2) 10^3/uL 0.04 PT (9.1-11.1) sec 11.3 H INR (0.9-1.1) 1.1 APTT (20.6-30.2) sec 26.1 Sodium (136-145) mmol/L 139 Potassium (3.5-5.1) mmol/L 3.7 Chloride (98-107) mmol/L 103 Carbon Dioxide (21.0-32.0) mmol/L 22.4 Anion Gap (3-11) mmol/L 13.6 H BUN (7-18) mg/dL 18 Creatinine (0.70-1.30) mg/dL 0.8 Est GFR (CKD-EPI 2020) (mL/min/1.73m2) 95.21 Glucose (74-106) mg/dL 99 Calcium (8.5-10.1) mg/dL 9.1 Magnesium (1.8-2.4) mg/dL 1.9 Total Bilirubin (0.2-1.0) mg/dL 1.7 H AST (15-37) U/L 24 ALT (16-63) U/L 27 Alkaline Phosphatase (46-116) U/L 92 Troponin I (<or=76) ng/L 9 NT-Pro-B Natriuret Pep (<300) pg/mL 525 H Total Protein (6.4-8.2) g/dL 8.2 Albumin (3.4-5.0) g/dL 3.9 Medical Decision Making Emergent evaluation of shortness of breath on arrival patient's EKG was concerning for atrial fibrillation with RVR. Rate in the 150s. His blood pressure is within normal limits. I am concerned that the patient was seen a couple of weeks ago with the likely diagnosis at that time of atrial fibrillation or other tacky dysrhythmia, but was started on a daily beta-misael no further workup was initiated. His symptoms are concerning for new onset heart failure. He does have crackles on examination and O2 sats are on the lower side but still within normal limits, not requiring any supplemental oxygen or noninvasive ventilation. Lab work reviewed, mild leukocytosis at 11 no anemia no electrolyte derangement, troponin is not elevated, BNP is 525. Chest x-ray reviewed and independently interpreted, there is concern for pulmonary edema. Patient will be given Lasix. He will be started on full dose aspirin. After 2 doses of IV diltiazem, patient's rate has come down into the 80s and 90s. Will continue to closely monitor this. Discussed with the hospitalist and will admit to their service for further management of new onset atrial fibrillation as well as new onset CHF Critical Care Time Critical Care Time Critical Care Time: Yes Total Critical Care Time: 34 Attestation: CRITICAL CARE Upon my evaluation, this patient had a high probability of imminent or life-threatening deterioration due to tachydysrhythmia which required my direct attention, intervention, and personal management. I have personally provided 34 minutes of critical care time exclusive of time spent on separately billable procedures. Time includes review of laboratory data, radiology results, discussion with consultants, and monitoring for potential decompensation. Interventions were performed as documented above [facility] All Active Problems (Updated 05/03/25 @ 17:59 by Cherie Feng MD) Persistent atrial fibrillation with RVR (Acute) Social History Smoking risk assessment performed?: No
[2025-05-03 19:36] LABS: Troponin I 9 ng/L (<or=76)
--- NOTE | 2025-05-03 19:36 | W.PC.ACHO ---
Registration Status: ADM LEONARDO Primary Language: Preferred Language: ED Information & Data Chief Complaint SOB 05/03/25 17:39 Triage Note Persistent coughing, SoB 05/03/25 15:36 with walking and coughing, fever (took 2 ibuprofen approx. 1430). Urgent care concerned about abnormal EKG . Most Recent Vital Signs Temperature 37.4 C 05/03/25 18:02 Temperature Source Oral 05/03/25 15:41 Pulse 100 H 05/03/25 18:12 Pulse Rhythm Regular 05/03/25 18:02 Pulse 109 H 05/03/25 17:40 Respiratory Rate 18 05/03/25 18:12 Respiratory Effort Normal 05/03/25 18:02 Respiratory Depth Normal 05/03/25 18:02 Respiratory Pattern Normal 05/03/25 18:02 Blood Pressure 122/82 05/03/25 18:12 Blood Pressure Mean 92 05/03/25 17:31 Blood Pressure Position Sitting 05/03/25 15:41 Pulse Oximetry 95 05/03/25 18:12 Oxygen Delivery Method Room Air 05/03/25 18:02 Oxygen Flow Rate 0 05/03/25 18:02 Pain Level 0 05/03/25 18:12 Allergies bee venom protein (honey bee) Allergy (Intermediate, Verified 05/03/25 16:21) Hives Sulfa (Sulfonamide Antibiotics) Allergy (Intermediate, Verified 05/03/25 16:21) Skin Rash sulfamethoxazole (From Bactrim) Allergy (Intermediate, Verified 05/03/25 16:21) Skin Rash trimethoprim (From Bactrim) Allergy (Intermediate, Verified 05/03/25 16:21) Skin Rash Active Medications Generic Name Dose Route Start Last Admin Trade Name Freq PRN Reason Stop Dose Admin Sodium Chloride 0 ml 05/03/25 15:52 05/03/25 16:12 Normal Saline Flush 10 Ml Syr IVP 10 ml PRN PRN Administration IV IV Catheter Type [Right Peripheral IV Antecubital] IV Catheter Gauge [Right 18 Antecubital] Diet Orders Category Date Time Status Heart Healthy Eating [DIET] Nutrition 05/03/25 Dinner Active Diagnostics 05/03/25 05/03/25 05/03/25 Range/Units 19:00 17:00 16:00 WBC 11.14 H (4.4-10.8) 10^3/uL RBC 4.45 (4.36-5.78) 10^6/uL Hgb 13.7 (13.5-17.5) g/dL Hct 40.4 (40.0-50.0) % MCV 91 (80-95) fL MCH 30.8 (27.0-33.0) pg MCHC 33.9 (32.0-36.0) % RDW 12.7 (11.8-14.1) % Plt Count 146 (130-400) 10^3/uL MPV 10.9 (8.0-11.0) fL Immature Gran % 0.4 % Neutrophils % 75.1 % Lymphocytes % 12.3 % Monocytes % 11.1 % Eosinophils % 0.7 % Basophils % 0.4 % Nucleated RBC % 0.0 (0.0-0.3) % Absolute Neutrophils 8.37 H (1.2-6.7) 10^3/uL Absolute Lymphocytes 1.37 (1.2-3.4) 10^3/uL Absolute Monocytes 1.24 H (0.1-0.8) 10^3/uL Absolute Eosinophils 0.08 (0.0-0.7) 10^3/uL Absolute Basophils 0.04 (0.0-0.2) 10^3/uL PT 11.3 H (9.1-11.1) sec INR 1.1 (0.9-1.1) APTT 26.1 (20.6-30.2) sec Sodium 139 (136-145) mmol/L Potassium 3.7 (3.5-5.1) mmol/L Chloride 103 (98-107) mmol/L Carbon Dioxide 22.4 (21.0-32.0) mmol/L Anion Gap 13.6 H (3-11) mmol/L BUN 18 (7-18) mg/dL Creatinine 0.8 (0.70-1.30) mg/dL Est GFR (CKD-EPI 2020) 95.21 (mL/min/1.73m2) Glucose 99 (74-106) mg/dL Calcium 9.1 (8.5-10.1) mg/dL Magnesium 1.9 (1.8-2.4) mg/dL Total Bilirubin 1.7 H (0.2-1.0) mg/dL AST 24 (15-37) U/L ALT 27 (16-63) U/L Alkaline Phosphatase 92 (46-116) U/L Troponin I Pending 9 9 (<or=76) ng/L NT-Pro-B Natriuret Pep 525 H (<300) pg/mL Total Protein 8.2 (6.4-8.2) g/dL Albumin 3.9 (3.4-5.0) g/dL Intake and Output - 24 Hour Total 05/03/25 15:32 thru 05/03/25 18:02 Output Total 750 Balance -750 Weight 97.432 kg Output: Urine 750 Other: Urine Appearance Clear Falls Risk Assessment History of Falls No History 05/03/25 18:02 Contributing Factors No Factors 05/03/25 18:02 Ambulatory Aids Independent 05/03/25 18:02 Tubes/Lines None 05/03/25 18:02 Gait Evaluation No gait disturbance 05/03/25 18:02 Cognition No cognitive impairment 05/03/25 18:02 Fall Total Score 0 05/03/25 18:02 Level of Risk Standard/Low Risk 05/03/25 18:02 Problems Persistent atrial fibrillation with RVR (Acute) v v v v v v v v v Sending and/or Receiving Nurses: Please use comment section below to note any information pertinent to the patient hand-off not included above. Information / Comments:Report called [id number], paged at [phone] Report received from:Payton PALMER RN
[2025-05-03] MEDS: dilTIAZem 30 MG TAB PO ×2 (20:36→23:19)
[2025-05-03] MEDS: guaiFENesin 200 MG/10 ML CUP 100 MG PO (23:19)
[2025-05-04] VITALS (10 sets, daily range): BP systolic 113–143; BP diastolic 76–81; PULSE 63–120; RESP 14–17; TEMP 37–38.4; O2SAT 92–97
[2025-05-04] MEDS: LORazepam 0.5 MG TAB PO ×2 (03:22→16:23)
[2025-05-04] MEDS: Melatonin 3 MG TAB 9 MG PO ×2 (03:22→20:11)
[2025-05-04] MEDS: Acetaminophen 325 MG TAB 650 MG PO ×2 (03:27→16:22)
[2025-05-04] MEDS: dilTIAZem 30 MG TAB PO (05:20)
[2025-05-04 06:05] LABS: HCT 40.7 % (40.0-50.0); HGB 13.9 g/dL (13.5-17.5); MCH 31.4 pg (27.0-33.0); MCHC 34.2 % (32.0-36.0); MCV 92 fL (80-95); MPV 11.3 fL (8.0-11.0); Platelet Count 145 10^3/uL (130-400); RBC 4.42 10^6/uL (4.36-5.78); RDW 12.5 % (11.8-14.1); RDW-SD 42.5 fL; WBC 11.19 10^3/uL (4.4-10.8)
[2025-05-04 06:19] LABS: Anion Gap 12.7 mmol/L (3-11); BUN 20 mg/dL (7-18); CO2 24.3 mmol/L (21.0-32.0); Calcium 9.3 mg/dL (8.5-10.1); Chloride 102 mmol/L (98-107); Estimated GFR 91.88 (mL/min/1.73m2); Glucose 137 mg/dL (74-106); Magnesium 2.0 mg/dL (1.8-2.4); Potassium 3.5 mmol/L (3.5-5.1); Sodium 139 mmol/L (136-145)
[2025-05-04] MEDS: dilTIAZem 30 MG TAB 60 MG PO ×2 (08:31→20:12)
[2025-05-04] MEDS: Normal Saline Flush 10 ML SYR IVP ×2 (08:33→20:13)
--- NOTE | 2025-05-04 09:23 | INITIAL_ITS ---
Date of service: 05/04/25 Time of Service: 09:24 Care Management Initial Assmt Initial Assessment Reason for Hospitalization: Afib with RVR Functional Status/Living Situation Patient Presentation: Ivan, as Mahesh prefers to be called, was sitting up in bed when CM met with him. He was polite and agreeable to conversation. Ivan was admitted yesterday with afib with RVR. He was given Diltiazem and metoprolol and this afternoon converted to normal sinus rhythm with a rate in the 70s. Ivan stated that he believes he will be discharged home tomorrow if his heart rate remains controlle dArthur Love lives in a single family home in [place] with his , also names Ivan. They have no children. 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 Ivan is independent with ADLs and does not receive any community services. Town of Residence: [facility] Resides with: Spouse ( Gaby) Employment Status: Retired ([employer] for 45 years) Instrumental Activities of Daily Living (ADLs): Independent Medications Medication Management: No Issues/Barriers identified Advance Directives Advance Directives: Do you have an Advance Directive: N , 00:31 AD On File at [facility]: N 01/13/13, 07:34 Date Asked 05/03/25 05/03/25, 15:35 AD Date Reviewed COLST On File at [facility] COLST Date Scanned Code Status Resuscitation Status Full Code Portal Pt does not currently have a portal and education provided: Yes Insurance Coverage/Financial Issues Insurance: Medicare A[employer] Senior Supplement Care Team Visit Care Team Role Provider Type Kim York Primary Care Provider NURSE PRACTITIONER Cherie Feng MD Emergency Provider [facility] STAFF PHYSICIAN August Fox MD Admit Provider [facility] STAFF PHYSICIAN Attending Provider Discharge Potential Discharge Needs: Consult Consult Services Needed: Cardiology and PCP F/U Appt Anticipated Barriers to Discharge: None Identified Patient/Family Education Needs: Review discharge instructions, discuss Ask Me Three Transportation: Private vehicle Plan: Anticipate Ivan will be discharged home with no new services when medically stable. He will follow up with his community providers and plan of care and transport with family. CM will follow and continue to assess for discharge needs. Social Determinants of Health Screening Social Determinants of health last assessed in clinic: 05/04/25 Will the Patient Participate in the Screening?: Yes Do you worry about having a steady place to live?: no Problems where you live: no known problems In the past 12 months, have you had to go without electric, gas, oil or water in your home?: no 1. Within the past 12 months, we worried whether our food would run out before we got money to buy more.: Never true 2. Within the past 12 months, the food we bought just didn't last and we didn't have money to get more.: Never true Has lack of transportation kept you from medical appointments or from doing things needed for daily living?: no Has anyone in your life made you feel unsafe or unsupported?: no How hard is it for you to pay for the very basics like food, housing, medical care, and heating? Would you say it is:: Not hard at all Do you want help finding or keeping work or a job?: I do not need or want help If for any reason you need help with day-to-day activities such as bathing, preparing meals, shopping, managing finances, etc., do you get the help you need?: I don?t need any help How often do you feel lonely or isolated from those around you?: Never Do you speak a language other than Belgian at home?: No Does the patient want assistance with any of the above?: No PFSH All Active Problems (Updated 05/03/25 @ 17:59 by Cherie Feng MD) Persistent atrial fibrillation with RVR (Acute) Social History Smoking risk assessment performed?: No Housing: house
[2025-05-04] MEDS: Metoprolol 25 MG TAB PO ×2 (10:41→20:12)
[2025-05-04] MEDS: guaiFENesin 200 MG/10 ML CUP 100 MG PO ×2 (10:59→17:38)
--- NOTE | 2025-05-04 12:47 | PHA.REVIEW2 ---
Pharmacy Admission Review Admission Clinical Review Admission Pharmacy Review: Persistent atrial fibrillation with RVR (Acute) bee venom protein (honey bee) Allergy (Intermediate, Verified 05/03/25 16:21) Hives Sulfa (Sulfonamide Antibiotics) Allergy (Intermediate, Verified 05/03/25 16:21) Skin Rash sulfamethoxazole (From Bactrim) Allergy (Intermediate, Verified 05/03/25 16:21) Skin Rash trimethoprim (From Bactrim) Allergy (Intermediate, Verified 05/03/25 16:21) Skin Rash Resuscitation Status Full Code Height 5 ft 10 in Weight 97.432 kg Pharmacy Admission Review Renal Dosing Renal Dosing: BUN 20 mg/dL (7-18) H 05/04/25 05:25 Creatinine 0.9 mg/dL (0.70-1.30) 05/04/25 05:25 Medications needing adjustments: Reviewed (CrCl 80.47 mL/min) List of meds needing interventions: Current medications are okay Anticoagulation Anticoagulation: Hgb 13.9 g/dL (13.5-17.5) 05/04/25 05:25 Hct 40.7 % (40.0-50.0) 05/04/25 05:25 Plt Count 145 10^3/uL (130-400) 05/04/25 05:25 INR 1.1 (0.9-1.1) 05/03/25 16:00 Creatinine 0.9 mg/dL (0.70-1.30) 05/04/25 05:25 DVT Prophylaxis: Intervened (Spoke to provider as no DVT prophylaxis ordered. Per provider patients CHADVASC score = 1 so none needed at this time) Relevant Labs Relevant Labs: Sodium 139 mmol/L (136-145) 05/04/25 05:25 Potassium 3.5 mmol/L (3.5-5.1) 05/04/25 05:25 Chloride 102 mmol/L (98-107) 05/04/25 05:25 Magnesium 2.0 mg/dL (1.8-2.4) 05/04/25 05:25 Electrolytes, C-Reactive P, ESR: Reviewed Cardiac Review Cardiac Review: Troponin I 9 ng/L (<or=76) 05/03/25 19:00 NT-Pro-B Natriuret Pep 525 pg/mL (<300) H 05/03/25 16:00 BP, HR, EF%: Reviewed (BP WNL, HR ranged from 101-120 this morning) List meds needing interventions: Has orders for diltiazem 60mg BID and metoprolol 25mg BID QTc Review QTc: Reviewed (522 from 05/03/25) List meds needing interventions: Current medications are okay IV to PO Switch IV Medications: Reviewed Home Meds Home Med List reviewed: Reviewed Relevent Home Meds Not ordered & why?: atenolol (discontinued per H+P) and vitamin D2 (weekly) Current Meds Current Medication Order Review: Intervened Comments: Changed IV ED access order
--- NOTE | 2025-05-04 13:00 | RT.EKG_ITS ---
APPROVED REPORT Exam: Resting ECG Reason for Exam: rhythm change Patient Location: I HR:66 bpm ECG Measurements Heart Rate 66 AXIS ID 165 P 0 QRSd 96 QRS 90 QT 446 T 144 QTc 468 Conclusion Sinus rhythm...normal P axis, V-rate 50- 99 Atrial premature complex...SV complex w/ short R-R interval Borderline right axis deviation...QRS axis ( 81, 90) Abnormal T,diffuse leads...T <-0.20mV, ant/lat/inf
[2025-05-04] MEDS: Benzonatate 200 MG CAP PO ×2 (13:31→21:18)
--- NOTE | 2025-05-04 16:41 | PGE_ITS ---
Date of Service Date of service: 05/04/25 Time of Service: 16:41 Assessment and Plan Assessment and plan (1) Persistent atrial fibrillation with RVR: Status: Acute Assessment and plan: - Patient diagnosed with A-fib about 2 weeks ago was started on atenolol - For the last few days he has had increased heart rate progressed to some shortness of breath - Heart rate was found to be in the high 130s in the emergency department was given 2 doses of 25 mg IV diltiazem with improvement of his heart rate - Given appropriate physiologic response to IV diltiazem, patient will stop atenolol and was started on 30 mg p.o. diltiazem twice daily -Heart rate remained high overnight needed additional 30 mg p.o. diltiazem, now on 60 mg p.o. twice daily - Heart rate remained elevated this morning in the 130s, was started on Lopressor 25 mg p.o. twice daily resulting in conversion to normal sinus rhythm - Will monitor overnight and if heart rate remains controlled will discharge in the morning Subjective Subjective Interval history since last seen: Patient states that he is doing well and understands the plan to continue to try to treat rate control medications. Exam Narrative Exam Narrative: Well-appearing older gentleman laying in bed in no acute distress, ANO x 4, heart irregularly irregular with rates in the low 100s, lungs good auscultation bilaterally, abdomen soft, nontender, nondistended Objective Last Vital Signs Temp 101.1 F H 05/04/25 16:22 Pulse 73 05/04/25 16:15 Resp 17 05/04/25 11:12 BP 129/77 05/04/25 16:25 Pulse Ox 94 05/04/25 16:15 Laboratory Results - last 24 hr 05/03/25 05/03/25 05/04/25 17:00 19:00 05:25 WBC 11.19 H RBC 4.42 Hgb 13.9 Hct 40.7 MCV 92 MCH 31.4 MCHC 34.2 RDW 12.5 Plt Count 145 MPV 11.3 H Sodium 139 Potassium 3.5 Chloride 102 Carbon Dioxide 24.3 Anion Gap 12.7 H BUN 20 H Creatinine 0.9 Est GFR (CKD-EPI 2020) 91.88 Glucose 137 H Calcium 9.3 Magnesium 2.0 Troponin I 9 9 Time Spent with Patient Time Spent with Patient: >50 minutes Time was spent: preparing to see the patient(eg.review tests), obtaining and/or reviewing separately otained hiistory, ordering medications,tests, procedures, referring, communicating with other health respiratory care practitioner, indepentently interpreting results, counseling the patient and care coordination
[2025-05-04 18:01] LABS: COVID-19 PCR Negative (Negative); RSV PCR Negative (Negative)
[2025-05-05 00:10] VITALS: BP 129/73; PULSE 74; RESP 16; TEMP 37.2; O2SAT 92
[2025-05-05 00:19] VITALS: PULSE 67
[2025-05-05] MEDS: guaiFENesin 200 MG/10 ML CUP 100 MG PO ×2 (00:51→07:47)
[2025-05-05] MEDS: LORazepam 0.5 MG TAB PO (00:52)
[2025-05-05 02:08] VITALS: BP 140/73; PULSE 82; RESP 20; TEMP 38.1; O2SAT 91
[2025-05-05 07:35] LABS: Abs Immature Grans 0.05 10^3/uL (0.0-0.06); HCT 38.1 % (40.0-50.0); HGB 12.8 g/dL (13.5-17.5); Immature Grans % 0.4 %; MCH 30.3 pg (27.0-33.0); MCHC 33.6 % (32.0-36.0); MCV 90 fL (80-95); MPV 10.6 fL (8.0-11.0); Platelet Count 146 10^3/uL (130-400); RBC 4.22 10^6/uL (4.36-5.78); RDW 12.5 % (11.8-14.1); RDW-SD 41.1 fL; WBC 11.88 10^3/uL (4.4-10.8)
[2025-05-05] MEDS: Acetaminophen 325 MG TAB 650 MG PO (07:45)
[2025-05-05] MEDS: Rosuvastatin 5 MG TAB PO (07:45)
[2025-05-05] MEDS: dilTIAZem 30 MG TAB 60 MG PO (07:46)
[2025-05-05] MEDS: Metoprolol 25 MG TAB PO (07:46)
[2025-05-05] MEDS: Normal Saline Flush 10 ML SYR IVP (07:46)
[2025-05-05 07:59] VITALS: BP 126/86; PULSE 76; RESP 18; TEMP 37.3; O2SAT 92
[2025-05-05 08:26] VITALS: PULSE 128
--- NOTE | 2025-05-05 09:15 | PDOC.CMPRO ---
Date of service: 05/05/25 Time of Service: 09:15 Care Management Progress Note Discharge Potential Discharge Needs: Consult Consult Services Needed: Cardiology and PCP F/U Appt Anticipated Barriers to Discharge: None Identified Patient/Family Education Needs: Review discharge instructions, discuss Ask Me Three Transportation: Private vehicle Plan: Anticipate Ivan will be discharged home with no new services when medically stable. He will follow up with his community providers and plan of care and transport with family. CM will follow and continue to assess for discharge needs. Social Determinants of Health Screening Social Determinants of health last assessed in clinic: 05/04/25 Will the Patient Participate in the Screening?: Yes Do you worry about having a steady place to live?: no Problems where you live: no known problems In the past 12 months, have you had to go without electric, gas, oil or water in your home?: no Has lack of transportation kept you from medical appointments or from doing things needed for daily living?: no Has anyone in your life made you feel unsafe or unsupported?: no How hard is it for you to pay for the very basics like food, housing, medical care, and heating? Would you say it is:: Not hard at all Do you want help finding or keeping work or a job?: I do not need or want help If for any reason you need help with day-to-day activities such as bathing, preparing meals, shopping, managing finances, etc., do you get the help you need?: I don?t need any help How often do you feel lonely or isolated from those around you?: Never Do you speak a language other than Latvian at home?: No Does the patient want assistance with any of the above?: No
--- NOTE | 2025-05-05 10:11 | W.PM.DS.N ---
Date of service: 05/05/25 Time of Service: 10:11 DS: Diagnosis Discharge Diagnosis (1) Persistent atrial fibrillation with RVR: Status: Acute Discharge Plan Disposition Patient Disposition: Home Condition: Good Discharge Details Reason For Visit: A - fib RVR Admit Date/Time: 05/03/25 16:52 Admit Provider: August Fox Attending Provider: August Fox Primary Care Provider: Kim York Hospital Course Hospital Course: Patient initially presented with signs and symptoms of tachycardia was consistent with A-fib with RVR. He received IV diltiazem in the emergency department had initial improvement of his heart rate, however he then required additionally doses of diltiazem, and on the morning of 05/04/2025 despite spite 60 mg p.o. diltiazem remained in A-fib with heart rates in the 130s. He was then started on 25 mg Lopressor and subsequently converted to normal sinus rhythm. His heart rate and his blood pressures were both improved with combination therapy for which she will be discharged. Additionally, his [id number] 2 was only 1 and he will also be sent home with aspirin. Patient also complained of a chronic cough for which he will be sent home with Tussionex as well as a outpatient referral to pulmonology. Patient also developed fever while in the hospital though he did not have a white count, worsening cough, sputum production, dysuria or anything else to point towards potential sign of infection including a negative flu and COVID test. If anything, patient may have developed minor viral illness which is what could have precipitated his A-fib with RVR. However, patient states that he is feels well and is ready for discharge home. Home Meds and New Rx's Prescriptions: New hydrocodone-chlorpheniramine 10-8 mg/5 mL Suspension,Extended Rel 12 Hr 10 ml PO HS PRN PRNQty: 115 0RF diltiazem HCl 30 mg Tablet 60 mg PO BID Qty: 90 0RF metoprolol tartrate 25 mg Tablet 25 mg PO BID Qty: 90 0RF aspirin 81 mg tablet 81 mg PO DAILY Qty: 90 0RF Continued rosuvastatin 5 mg tablet 5 mg PO DAILY Patient Comments: TAKE ONE TABLET BY MOUTH EVERY DAY ergocalciferol (vitamin D2) 1,250 mcg (50,000 unit) capsule 1,250 mcg PO .weekly Patient Comments: TAKE ONE CAPSULE BY MOUTH ONCE WEEKLY FOR 12 WEEKS THEN SWITCH TO [id number] 1000-2000IU PER DAY Discontinued atenolol 25 mg tablet 12.5 mg PO DAILY Patient Comments: TAKE ONE-HALF TABLET BY MOUTH EVERY DAY Discharge Instructions Stand Alone Forms: Nursing Discharge Form Referrals: Kim York [Primary Care Provider, Medicine] - 05/11/25 3:30 pm Hamilton Cadet MD [ [facility] STAFF PHYSICIAN, Pulmonology] Referral Note: chronic cough- Office will call Jordan [facility]imes with apt Activity:: Activity as Tolerated Equipment/Supplies:: No Equipment Needed Diet:: As Tolerated Discharge Orders Discharge Orders: Discharge Order (Routine); Ordered 05/05/25 Ordered By: August Fox Discharge Data Discharge Date/Time-TO BE ENTERED AT DEPARTURE: 05/05/25 11:03 DS: Summary Time Spent with Patient providing and/or coordinating discharge services: Greater than 30 minutes Status at Discharge Functional status at discharge: independent ambulation Overall status at discharge: patient is back to baseline Mental Status: mental status grossly normal Speech and Movement: speech and movement normal Mood: congruent mood Affect: normal affect Exam Narrative Exam Narrative: Well-appearing older gentleman laying in bed in no acute distress, ANO x 4, heart RRR, lungs good auscultation bilaterally, abdomen soft, nontender, nondistended Psych Mental Status: mental status grossly normal Speech and Movement: speech and movement normal Mood: congruent mood Affect: normal affect DS: Data Vitals/I&O Vitals and I&O: Vital Signs Temperature 99.1 F 05/05/25 07:59 Temperature Source Temporal Artery Scan 05/05/25 07:59 Pulse 128 H 05/05/25 08:26 Pulse Rhythm Regular 05/03/25 18:02 Pulse 109 H 05/03/25 17:40 Respiratory Rate 18 05/05/25 07:59 Respiratory Effort Normal 05/03/25 18:02 Respiratory Depth Normal 05/03/25 18:02 Respiratory Pattern Normal 05/03/25 18:02 Blood Pressure 126/86 05/05/25 07:59 Blood Pressure Mean 99 05/05/25 07:59 Blood Pressure Position Sitting 05/03/25 15:41 Pulse Oximetry 92 05/05/25 07:59 Oxygen Delivery Method Room Air 05/05/25 07:59 Oxygen Flow Rate 0 05/05/25 07:59 Pain Level 0 05/05/25 08:45 Comment RN Notified 05/04/25 14:45 Intake & Output 05/04/25 05/05/25 05/05/25 17:59 05:59 17:59 Intake Total 900 / 900 Output Total 0 / 0 Balance 900 / 900 Intake: Oral 900 / 900 Output: Stool 0 / 0 Other: Urine Color Yellow Urine Appearance Clear Urine Odor Normal Comment pt voided in toilet. independent Data Completed and Pending Labs on day of discharge: Labs from last 24 hours 05/05/25 05/04/25 07:27 17:17 WBC 11.88 H RBC 4.22 L Hgb 12.8 L Hct 38.1 L MCV 90 MCH 30.3 MCHC 33.6 RDW 12.5 Plt Count 146 MPV 10.6 Immature Gran % 0.4 Neutrophils % 75.2 Lymphocytes % 11.0 Monocytes % 12.0 Eosinophils % 1.1 Basophils % 0.3 Nucleated RBC % 0.0 Absolute Neutrophils 8.93 H Absolute Lymphocytes 1.31 Absolute Monocytes 1.43 H Absolute Eosinophils 0.13 Absolute Basophils 0.04 COVID-19 Source Nasopharynx SARS-CoV-2 (PCR) Negative Influenza Type A (PCR) Negative Influenza Type B (PCR) Negative RSV (PCR) Negative PFSH All Active Problems (Updated 05/03/25 @ 17:59 by Cherie Feng MD) Persistent atrial fibrillation with RVR (Acute) Social History Smoking risk assessment performed?: No Housing: house Time Spent with Patient Time Spent with Patient: <45 minutes Time was spent: preparing to see the patient(eg.review tests), obtaining and/or reviewing separately otained hiistory, ordering medications,tests, procedures, referring, communicating with other health care services manager, indepentently interpreting results, counseling the patient and care coordination
--- NOTE | 2025-05-05 13:21 | CMDISCH_ITS ---
Date of service: 05/05/25 Time of Service: 13:22 LACE Index Scoring Tool Questions: Length of Stay (in days): 2 Was the patient admitted via the E.D.?: Yes E.D. Visits: 1 Answers: Total Score: 6 Risk of Readmission: Low Risk Care Management Discharge Plan Reason for Hospitalization: afib with RVR Discharge Plan: Ivan will be discharged home with no new services. He will follow up with his community providers and plan of care and transport with ana lora. Patient/Family Education Needs: Review discharge instructions, discuss Ask Me Three
== END 2025-05-05 11:03 | disposition home or self-care (01) ==
LOC: ER 17:59 → MS 18:07
PROVIDERS: Admitting Provider Family Medicine; Emergency Provider Emergency Medicine; PCP Nurse Practitioner Family; Responsible Provider Family Medicine; Visit Provider Family Medicine
DX: I48.19 Other persistent atrial fibrillation (principal); R06.02 Shortness of breath; R50.9 Fever, unspecified; R05.3 Chronic cough; Z79.899 Other long term (current) drug therapy
CPT/HCPCS: 00123; 36415; 80048; 80053; 85027; 87637; 93005; 96374; 96375; 99291; 71045; 83735; 83880; 84484; 85025; 85610; 85730; 93010; 99223; 99233; 99239; G0378; J1938; J3490